=== PATIENT | female | born 1995 | race Caucasian/White ===

== ENCOUNTER 2021-10-05 07:50 | Outpatient (CLI) | payer BC, SELFPAY ==
--- NOTE | 2021-10-05 08:15 | CRLHL7_ITS ---
For Patients: As a result of the Cures Act, medical imaging exams and procedure reports are released immediately into your electronic medical record. You may view this report before your referring provider. If you have questions, please contact your health care provider. INDICATION: First trimester scan, establish dates. COMPARISON: None. TECHNIQUE: Real-time huerta-scale imaging of the pelvis was performed. FINDINGS: Sonographic imaging demonstrates a single living intrauterine gestation. The embryo demonstrates a regular cardiac rate measuring 148 beats per minute. The embryo`s crown-rump length measurement of 1.3 cm corresponds to a gestational age of 7 weeks 3 days with a sonographic due date of 05/21/2022. There is a normal-appearing yolk sac. There are no gross abnormalities noted within the embryo at this early state of development. The gestational sac has a normal appearance. There is no evidence of a perigestational hemorrhage. The amount of fluid within the sac appears appropriate for gestational age. The cervix is closed. The myometrium appears normal. The ovaries are of normal size. Corpus luteal cyst is present on the right measuring 2.5 x 1.6 x 1.7 cm. There are no suspicious fluid collections noted in the cul-de-sac. Trace physiologic free fluid. IMPRESSION: Single living intrauterine with sonographic gestational age 7 weeks 3 days and sonographic due date 05/21/2022. Dictated by Duncan Mora MD @ 10/05/2021 9:21:44 AM (Electronically Signed)
--- OUTSIDE RECORDS SUMMARY | 2021-10-12 20:55 | XMS_ITS | Encounter Summary ---
:1995 Author Organization [facility] Address [address] [place] [address] Care Team Providers Name Role Phone Moni Key MD Unavailable Moni Key MD Primary Care Provider Reason for Visit Reason Comments Medication Refill Encounter Details Date Type Department Care Team Description 05/06/2020 Refill [facility] Cassia Key MD Medication Refill [place] [address] [facility] [address] [place] [address] [place] [address] [phone] Social History Tobacco Use Types Packs/Day Years Used Date Never Smoker Smokeless Tobacco: Never Used Alcohol Use Standard Drinks/Week Comments Yes 0 (1 standard drink = 0.6 oz pure alcoho l) social Alcohol Habits Answer Date Recorded How often do you have a drink containing alcohol? Not asked How many drinks containing alcohol do you have on a typical Not asked day when you are drinking? How often do you have six or more drinks on one occasion? No t asked Comment: social 11/03/2015 Sex Assigned at Date Recorded Not on file documented as of this encounter Miscellaneous Notes Telephone Encounter - Becki Garner RN - 05/07/2020 10:57 AM CST Letter mailed to patient. S FEEDER Telephone Encounter - Moni Zamora RN - 05/07/2020 9:44 AM CST Medication is being filled for 1 time refill only due to: Patient needs to be seen because it has been more than one year since last visit. Please call patient or mail a letter S FEEDER Telephone Encounter - Moni Zamora RN - 05/07/2020 9:41 AM CST Requested Prescriptions Pending Prescriptions Disp Refills ??? ESTARYLLA 0.25-35 MG-MCG tablet [Pharmacy Med Name: ESTARYLLA TABLETS 28S] 84 tablet 3 Sig: TAKE 1 TABLET BY MOUTH DAILY Contraceptives Protocol Failed - 05/06/2020 3:18 AM Failed - Recent (12 mo) or future (30 days) visit within the authorizing provider's specialty Patient has had an office visit with the authorizing provider or a provider within the authorizing providers department within the previous 12 mos or has a future within next 30 days. See Patient Info tab in inbasket, or Choose Columns in Meds & Orders section of the refill encounter. Passed - Patient is not a current smoker if age is 35 or older Passed - Medication is active on med list Passed - No active on record Passed - No positive test in past 12 months S FEEDER documented in this encounter Plan of Treatment Not on filedocumented as of this encounter Visit Diagnoses Diagnosis Encounter for surveillance of contracept papi pills Surveillance of previously prescribed co ntraceptive pill documented in this encounter Care Teams Cigarette Stamper Relationship Specialty Start Date End Date Moni Key MD PCP - General Internal Medicine 11/20/17 [address] [place] [address] Moni Key MD Assigned PCP 12/10/17 [address] [place] [address] documented as of this encounter
--- OUTSIDE RECORDS SUMMARY | 2021-10-12 20:55 | XMS_ITS | Encounter Summary ---
:1995 Author Organization [facility] Address [address] [place] [address] Care Team Providers Name Role Phone Moni Key MD Unavailable Moni Key MD Primary Care Provider Reason for Visit Reason Comments Physical Fasting. Refill for co ntrol pill Encounter Details Date Type Department Care Team Description 03/19/2019 Office Visit [facility] Moni Key MD Encounter for routine adult health exami [facility] without abnormal findings (Primary Dx); [facility] [address] Encounter for surveillance o f contraceptive pills; [address] Screening for malignant neoplasm of cerv ix [place], [place] [phone] Social History Tobacco Use Types Packs/Day Years [...] on file documented as of this encounter Last Filed Vital Signs Vital Sign Reading Time Taken Comments Blood Pressure 138/80 03/19/2019 8:15 AM ROLL MACHINE OPERATOR Pulse 99 03/19/2019 8:15 AM ROLL MACHINE OPERATOR Temperature 36.8 ??C (98.3 ??F) 03/19/2019 8:15 AM ROLL MACHINE OPERATOR Respiratory Rate 14 03/19/2019 8:15 AM ROLL MACHINE OPERATOR Oxygen Saturation 98% 03/19/2019 8:15 AM ROLL MACHINE OPERATOR Inhaled Oxygen Concentration - - Weight 68 kg (149 lb 14.4 oz) 03/19/2019 8:15 AM ROLL MACHINE OPERATOR Height 180.3 cm (5' 11) 03/19/2019 8:15 AM ROLL MACHINE OPERATOR Body Mass Index 20.91 03/19/2019 8:15 AM ROLL MACHINE OPERATOR documented in this encounter Patient Instructions Patient InstructionsMoni Key MD - 03/19/2019 8:00 AM CST PREVENTIVE HEALTH RECOMMENDATIONS: Vaccines: Get a flu shot each year. Get a tetanus shot every 10 years. Exercise for at least 150 minutes a week (an average of 30 minutes a day, 5 days of the week). This will help you control your weight and prevent disease. Limit alcohol to one drink per day. No smoking. Wear sunscreen to prevent skin cancer. See your dentist twice a year for an exam and cleaning. Try to get Calcium 1000 mg total per day. It is best to not take it all at once. Try to get Vitamin D at least 1000 units (25 mcg) per day. BMI or Body Mass Index is a way of indicating weight and health risk for cardiovascular diseases, high blood pressure, diabetes. Definitions: Underweight is less than 18.5 and will be associated with health risk. Normal BMI is 18.5 to 25 Overweight is 25-29 Obesity is 30 or greater Morbid Obesity is 40 or greater or 35 or greater with diabetes, prediabetes or abnormal blood sugar, high blood pressure or elevated cholesterol Obesity and Morbid Obesity are associated with higher health risks. Lowering calories, exercising more may lower your BMI and even small decreases can have positive impact on lowering health risks. Your Body mass index is 20.91 kg/m??.., MACHINE OPERATOR documented in this encounter Progress Notes Moni Key MD - 03/19/2019 8:00 AM CST SUBJECTIVE: CC: Jenny Allen is an 23 year old woman who presents for preventive health visit. Healthy Habits: Getting at least 3 servings of Calcium per day: Yes Bi-annual eye exam: NO Dental care twice a year: NO Sleep apnea or symptoms of sleep apnea: None Diet: Regular (no restrictions) Frequency of exercise: 4-5 days/week Duration of exercise: Greater than 60 minutes Taking medications regularly: Yes Medication side effects: None PHQ-2 Total Score: 0 Additional concerns today: No She reports she is doing well with her current control pill. Ability to successfully perform activities of daily living: Yes, no assistance needed Home safety: none identified Hearing impairment: None Today's PHQ-2 Score: PHQ-2 (??1999 Pfizer) 03/19/2019 Q1: Little interest or pleasure in doing things 0 Q2: Feeling down, depressed or hopeless 0 PHQ-2 Score 0 Q1: Little interest or pleasure in doing things Not at all Q2: Feeling down, depressed or hopeless Not at all PHQ-2 Score 0 Abuse: Current or Past(Physical, Sexual or Emotional)- No Do you feel safe in your environment? Yes Social History Tobacco Use ??? Smoking status: Never Smoker ??? Smokeless tobacco: Never Used Substance Use Topics ??? Alcohol use: Yes Alcohol/week: 0.0 standard drinks Comment: social If you drink alcohol do you typically have >3 drinks per day or >7 drinks per week? No Alcohol Use 03/19/2019 Prescreen: >3 drinks/day or >7 drinks/week? No Prescreen: >3 drinks/day or >7 drinks/week? - Reviewed orders with patient. Reviewed health maintenance and updated orders accordingly - Yes Mammogram not appropriate for this patient based on age. Pertinent mammograms are reviewed under the imaging tab. History of abnormal Pap smear: NO - age 21-29 PAP every 3 years recommended PAP / HPV 11/03/2015 PAP NIL Reviewed and updated as needed this visit by clinical staff Reviewed and updated as needed this visit by Provider Patient Active Problem List Diagnosis ??? CARDIOVASCULAR SCREENING; LDL GOAL LESS THAN 160 ??? Idiopathic thrombocytopenic purpura (H) Current Outpatient Medications Medication Sig Dispense Refill ??? norgestimate-ethinyl estradiol (ESTARYLLA) 0.25-35 MG-MCG tablet Take 1 tablet by mouth daily 84tablet 3 Review of Systems Constitutional: Negative for chills and fever. HENT: Negative for congestion, ear pain, hearing loss and sore throat. Eyes: Negative for pain and visual disturbance. Respiratory: Negative for cough and shortness of breath. Cardiovascular: Negative for chest pain, palpitations and peripheral edema. Gastrointestinal: Positive for constipation. Negative for abdominal pain, diarrhea, heartburn, hematochezia and nausea. Breasts: Negative for tenderness, breast mass and discharge. Genitourinary: Negative for dysuria, frequency, genital sores, hematuria, pelvic pain, urgency, vaginal bleeding and vaginal discharge. Musculoskeletal: Negative for arthralgias, joint swelling and myalgias. Skin: Negative for rash. Neurological: Negative for dizziness, weakness, headaches and paresthesias. Psychiatric/Behavioral: Negative for mood changes. The patient is not nervous/anxious. No bleeding issues OBJECTIVE: Physical Exam Patient alert, in no acute distress BP 138/80 (BP Location: Left arm, Patient Position: Sitting, Cuff Size: Adult Regular) Pulse 99 Temp 98.3 ??F (36.8 ??C) (Oral) Resp 14 Ht 1.803 m (5' 11) Wt 68 kg (149 lb 14.4 oz) LMP 03/12/2019 SpO2 98% BMI 20.91 kg/m?? HEENT: extraocular movements are intact, pupils equal and reactive to light and accommodation, TMs clear, oropharynx clear NECK: Neck supple. No adenopathy. Thyroid symmetric, normal size, PULMONARY: clear to auscultation CARDIAC: regular rate and rhythm and no murmurs, clicks, or gallops PULSES: 2/2 throughout BACK: no spinal or CVAT ABDOMINAL: Soft, nontender. Normal bowel sounds. No hepatosplenomegaly or abnormal masses BREAST: No breast masses or tenderness, No axillary masses or tenderness and No galactorrhea PELVIC: external genitalia normal, vaginal mucosa normal, cervix normal, specimen sent for pap and GC chlamydia, bimanual exam with normal uterus and adnexa, REFLEXES: 2+ throughout ASSESSMENT/PLAN: 1. Encounter for routine adult health examination without abnormal findings Up to date, had normal lipids in past, advised on otc for bowels, - NEISSERIA GONORRHOEA PCR - CHLAMYDIA TRACHOMATIS PCR 2. Encounter for surveillance of contraceptive pills stable - norgestimate-ethinyl estradiol (ESTARYLLA) 0.25-35 MG-MCG tablet; Take 1 tablet by mouth daily Dispense: 84 tablet; Refill: 3 COUNSELING: Reviewed preventive health counseling, as reflected in patient instructions Estimated body mass index is 22.01 kg/m?? as calculated from the following: Height as of 11/20/17: 1.803 m (5' 11). Weight as of 11/20/17: 71.6 kg (157 lb 12.8 oz). reports that she has never smoked. She has never used smokeless tobacco. Counseling Resources: ATP IV Guidelines Pooled Cohorts Equation Calculator Breast Cancer Risk Calculator FRAX Risk Assessment ICSI Preventive Guidelines Dietary Guidelines for Americans, 2010 USDA's MyPlate ASA Prophylaxis Lung CA Screening Moni Key MD [facility] MACHINE OPERATOR documented in this encounter Nursing Notes Sarkis Sandhu MA - 03/19/2019 8:00 AM CST BP 138/80 (BP Location: Left arm, Patient Position: Sitting, Cuff Size: Adult Regular) Pulse 99 Temp 98.3 ??F (36.8 ??C) (Oral) Resp 14 Ht 1.803 m (5' 11) Wt 68 kg (149 lb 14.4 oz) LMP 03/12/2019 SpO2 98% BMI 20.91 kg/m?? MACHINE OPERATOR documented in this encounter Miscellaneous Notes Result Encounter Note - Domi Lambert RN - 03/19/2019 8:00 AM ROLL MACHINE OPERATOR Awaiting HPV. Domi Lambert RN BSN, Pap Tracking MACHINE OPERATOR Addendum Note - Leda Suárez MA - 03/19/2019 8:00 AM ROLL MACHINE OPERATOR Addended by: LEDA SUÁREZ on: 03/19/2019 12:55 PM Modules accepted: Orders MACHINE OPERATOR documented in this encounter Plan of Treatment Not on filedocumented as of this encounter Procedures Procedure Name Priority Date/Time Associated Diagnosis Comme nts PAP IMAGED THIN Routine 03/19/2019 12:55 Screening for Results for this LAYER SCREEN PM ROLL MACHINE OPERATOR malignant neoplasm procedure are in of cervix the results section. HPV HIGH RISK TYPES Routine 03/19/2019 8:30 AM Screening for R esults for this DNA CERVICAL ROLL MACHINE OPERATOR malignant neoplasm procedure are in of cervix the results section. NEISSERIA Routine 03/19/2019 8:30 AM Encounter for Results for this GONORRHOEAE PCR ROLL MACHINE OPERATOR routine adult health proc edure are in examination without the resu lts abnormal findings section. CHLAMYDIA Routine 03/19/2019 8:30 AM Encounter for Results for this TRACHOMATIS PCR ROLL MACHINE OPERATOR routine adult health proc edure are in examination without the resu lts abnormal findings section. documented in this encounter Results Pap imaged thin layer screen with HPV - recommended age 30 - 65 years (select HPV order below) (03/19/2019 12:55 PM ROLL MACHINE OPERATOR) Component Value Ref Test Analysis Performed At [facility] Range Method Time Signature PAP NIL COPATH Copath Report COPATH Patient Name: JENNY ALLEN MR#: [id number] Specimen #: [id number] Collected: 03/19/2019 Received: 03/20/2019 Reported: 03/22/2019 09:48 Ordering Phy(s): MONI KEY For improved result formatting, select 'View Enhanced Report Format' under Linked Documents section. SPECIMEN/STAIN PROCESS: Pap imaged thin layer prep screening (Surepath, FocalPoint w ith guided screening) ? Pap-Cyto x 1, HPV ordered x 1 SOURCE: Cervical ---- Pap imaged thin layer prep screening (Surepath, FocalPoint with guided screening) SPECIMEN ADEQUACY: Satisfactory for evaluation. -Transformation zone component absent. CYTOLOGIC INTERPRETATION: Negative for intraepithelial lesion or malignancy Electronically signed out by: NABIL Cortez (ASCP) CLINICAL HISTORY: Papanicolaou Test Limitations: ??Cervical cytology is a sc reening test with limited sensitivity; regular screening is critical for cancer prevention; Pap tests are p rimarily effective for the diagnosis/prevention of squamous cell carcinoma, not adenocarcinomas or other cancer s. COLLECTION SITE: Client: ??[facility] Location: [facility] ([place]) The technical component of this testing was completed at the [facility], with the professional compo nent performed at the [facility], [address] [facility], [place] [address] ([phone]) Specimen (Source) Anatomical Collection Method Collection Time Re ceived Time Location / / Volume Laterality Cytologic 03/19/2019 12:55 03/20/2019 material PM ROLL MACHINE OPERATOR 10:09 AM ROLL MACHINE OPERATOR (specimen) Moni Key MD LAB - OPTIME CLINICAL SPECIM EN Performing Organization Address City/State/ZIP Code Phon e Number COPATH HPV High Risk Types DNA Cervical (03/19/2019 8:30 AM ROLL MACHINE OPERATOR) [facility] Method Time Signature HPV Source SurePath 03/19/2019 [place] 12:55 PM ROLL MACHINE OPERATOR [facility] HPV 16 DNA Negative NEG^Negat 03/26/2019 [facility] papi 2:59 PM ROLL MACHINE OPERATOR [facility] HPV 18 DNA Negative NEG^Negat 03/26/2019 [facility] ROLL MACHINE OPERATOR [facility] Other HR HPV Negative NEG^Negat 03/26/2019 [facility] papi 2:59 PM ROLL MACHINE OPERATOR [facility] Final This 03/26/2019 [facility] patient's 2:59 PM ROLL MACHINE OPERATOR [place] [facility] sample is [facility] negative for CAMPUS HPV DNA. Comment: This test was developed and its performa nce characteristics determined by the [facility], Molecular Diagnostics Laboratory. It has not been cleared or approved by the FDA. The laboratory is regulated under CLIA as qualified to perform high-compl exity testing. This test is used for clinical purposes. It should not be rega rded as investigational or for research. (Note) METHODOLOGY: ??The [employer] 4800 syst em uses automated extraction, simultaneous amplification of HPV (L1 re gion) and beta-globin, ?? followed by ??real time detection of flu orescent labeled HPV and beta globin using specific oligonucleotide pr obes . The test specifically identifies types HPV 16 DNA and HPV 18 D NA while concurrently detecting the rest of the high risk type s (31, 33, 35, 39, 45, 51, 52, 56, 58, 59, 66 or 68). COMMENTS: ??This test is not intended fo r use as a screening device for women under age 30 with normal cervi jimbo cytology. ??Results should be correlated with cytologic and histolo gic findings. Close clinical followup is recommended. Specimen Description Cervical Cells 03/19/2019 12: 55 PM [facility] Comment: [id number] Specimen Anatomical Collection Method Collection Time Receive d Time (Source) Location / / Volume Laterality Cervical Cells 03/19/2019 8:30 AM 020 2:02 ROLL MACHINE OPERATOR PM ROLL MACHINE OPERATOR Moni Key MD LAB - BLOOD ORDERABLES Performing Organization Address [facility] Phon e Number [address] [address] [facility] [address] [place], [place] [address] [address] CHLAMYDIA TRACHOMATIS PCR (03/19/2019 8:30 AM ROLL MACHINE OPERATOR) [facility] gist Method Time Signature Specimen Endocervical 03/19/2019 [place] Description 9:23 AM ROLL MACHINE OPERATOR [facility] Chlamydia Negative NEG^Negat 03/20/2019 INFECTIOUS Trachomatis PCR papi 1:23 PM ROLL MACHINE OPERATOR [facility] Comment: Negative for C. trachomatis rRNA by dueñas scription mediated amplification. A negative result by drawbridge operator media carly amplification does not preclude the presence of C. trachomatis infection because results are dependent on proper and adequate collection, absence of inhibitors, and sufficient rRNA to be detected. Specimen (Source) Anatomical Collection Method Collection Time Re ceived Time Location / / Volume Laterality Endocervical 03/19/2019 8:30 03/19/2019 9 :22 cytologic material AM ROLL MACHINE OPERATOR AM ROLL MACHINE OPERATOR (specimen) Moni Key MD LAB - MICRO GENERAL ORDERABL ES Performing Organization Address [facility] Phon e Number INFECTIOUS DISEASES [address] [place] [address] DIAGNOSTIC LABORATORY, [facility] [address] [place] [address] [place] [address] INFECTIOUS DISEASES [address] [place] [address], A [facility]IC LAB[facility]ORY NEISSERIA GONORRHOEA PCR (03/19/2019 8:30 AM ROLL MACHINE OPERATOR) Patholo gist Method Time Signature Specimen Endocervical 03/19/2019 [facility] Descrip 9:23 AM ROLL MACHINE OPERATOR [facility] N Gonorrhea Negative NEG^Negat 03/20/2019 INFECTIOUS PCR papi 1:23 PM ROLL MACHINE OPERATOR [facility] Comment: Negative for N. gonorrhoeae rRNA by dueñas scription mediated amplification. A negative result by drawbridge operator media carly amplification does not preclude the presence of N. gonorrhoeae infection because results are dependent on proper and adequate collection, absence of inhibitors, and sufficient rRNA to be detected. Specimen (Source) Anatomical Collection Method Collection Time Re ceived Time Location / / Volume Laterality Endocervical 03/19/2019 8:30 03/19/2019 9 :22 cytologic material AM ROLL MACHINE OPERATOR AM ROLL MACHINE OPERATOR (specimen) Moni Key MD LAB - MICRO GENERAL ORDERABL ES Performing Organization Address City/State/ZIP Code Phon e Number INFECTIOUS DISEASES [address] [place] [address] DIAGNOSTIC LABORATORY, [facility] [address] [place] [address] [place] [address] INFECTIOUS DISEASES [address] [place] [address], A DI[facility]STIC LAB[facility]ATORY documented in this encounter Visit Diagnoses Diagnosis Encounter for routine adult health exami nation without abnormal findings - Primary Encounter for surveillance of contracept papi pills Surveillance of previously prescribed co ntraceptive pill Screening for malignant neoplasm of cerv ix Screening for malignant neoplasm of the cervix documented in this encounter Care Teams School Principal Relationship Specialty Start Date End Date Moni Key MD PCP - General Internal Medicine 11/20/17 [address] [place] [address] Moni Key MD Assigned PCP 12/10/17 [address] [place] [address] documented as of this encounter
--- OUTSIDE RECORDS SUMMARY | 2021-10-12 20:55 | XMS_ITS | Encounter Summary ---
:1995 Author Organization [facility] Address [address] [place] [address] Care Team Providers Name Role Phone Moni Key MD Unavailable Moni Key MD Primary Care Provider Reason for Visit Reason Comments Medication Refill Encounter Details Date Type Department Care Team Description 07/27/2020 Refill [facility] Cassia Key MD Medication Refill [place] [address] [facility] [address] [place] [address] [facility] [place] [address] [phone] Social History Tobacco Use Types Packs/Day Years [...] this encounter Miscellaneous Notes Telephone Encounter - Miguelina Barbosa RN - 07/28/2020 10:11 AM CDT Routing refill request to provider for review/approval because: Luana given x1 and patient did not follow up, please advise Patient needs to be seen because it has been more than 1 year since last office visit. Pt has been contacted via phone and letter with no response Miguelina Barbosa RN, BSN documented in this encounter Plan of Treatment Not on filedocumented as of this encounter Visit Diagnoses Diagnosis Encounter for surveillance of contracept papi pills Surveillance of previously prescribed co ntraceptive pill documented in this encounter Care Teams [place] Relationship Specialty Start Date End Date Moni Key MD PCP - General Internal Medicine 11/20/17 [address] [place] [phone] Moni Key MD Assigned PCP 12/10/17 [address] [place] [phone] documented as of this encounter
--- OUTSIDE RECORDS SUMMARY | 2021-10-12 20:55 | XMS_ITS | Encounter Summary ---
:1995 Author Organization [place] Address [address] [place] [address] Care Team Providers Name Role Phone Moni Key MD Unavailable Moni Key MD Primary Care Provider Reason for Referral Consultation (Routine) - Closed Specialty Diagnoses / Procedures Referred By Contact Refer red To Contact Medical Oncology Diagnoses Idiopathic thrombocytopenic purpura (H) Moni Key MD [facility] [address] [address] [address] [place] [address] [facility] [place] [address] Phone: Fax: Referral ID Status Reason Start Date Expiration Date Visits Requ ested Visits Authorized [id number] Closed 09/07/2020 09/07/2021 1 1 Reason for Visit Reason Comments Physical Fasting. Encounter Details Date Type Department Care Team Description 09/07/2020 Office Visit [facility] Moni Key MD Encounter for routine adult health exami nation without abnormal findings (Primary Dx); [facility] [place] [address] Idiopathic thrombocytopenic purpura (H) [address] [place] [phone] Social History Tobacco Use Types Packs/Day Years [...] Assigned at Date Recorded Not on file COVID-19 Exposure Response Date Recorded In the last month, have you been in contact with No / Unsure 09/07/2020 8:32 AM CDT someone who was confirmed or suspected to have Coronavirus / COVID-19? documented as of this encounter Last Filed Vital Signs Vital Sign Reading Time Taken Comments Blood Pressure 127/82 09/07/2020 8:41 AM CDT Pulse 97 09/07/2020 8:41 AM CDT Temperature 36.7 ??C (98.1 ??F) 09/07/2020 8:41 AM CDT Respiratory Rate 20 09/07/2020 8:41 AM CDT Oxygen Saturation 99% 09/07/2020 8:41 AM CDT Inhaled Oxygen Concentration - - Weight 74.4 kg (164 lb) 09/07/2020 8:41 AM CDT Height 180.3 cm (5' 11) 09/07/2020 8:41 AM CDT Body Mass Index 22.87 09/07/2020 8:41 AM CDT documented in this encounter Patient Instructions Patient InstructionsMoni Key MD - 09/07/2020 8:20 AM CDT Start a vitamin. documented in this encounter Progress Notes Moni Key MD - 09/07/2020 8:20 AM CDT SUBJECTIVE: CC: Robyn Avila is an 24 year old woman who presents for preventive health visit. Patient has been advised of split billing requirements and indicates understanding: Yes Healthy Habits: Getting at least 3 servings of Calcium per day: Yes Bi-annual eye exam: NO Dental care twice a year: NO Sleep apnea or symptoms of sleep apnea: None Diet: Regular (no restrictions) Frequency of exercise: 4-5 days/week Duration of exercise: Greater than 60 minutes Taking medications regularly: Yes Medication side effects: None PHQ-2 Total Score: 0 Additional concerns today: No Current concerns: She is considering . She wonders how to stop the control pill. She also is concerned because of a history of ITP and whether that will affect . Ability to successfully perform activities of daily [...] all PHQ-2 Score 0 Abuse: Current or Past (Physical, Sexual or Emotional) - No Do you feel safe in your environment? Yes Have you ever done Advance Care Planning? (For example, a Health Directive, POLST, or a discussion with a medical provider or your loved ones about your wishes): No, advance care planning information given to patient to review. Patient plans to discuss their wishes with loved ones or provider. Social History Tobacco Use ??? Smoking status: Never Smoker ??? Smokeless tobacco: Never Used Substance Use Topics ??? Alcohol use: Yes Alcohol/week: 0.0 standard drinks Comment: social If you drink alcohol do you typically have >3 drinks per day or >7 drinks per week? No Alcohol Use 03/19/2019 Prescreen: >3 drinks/day or >7 drinks/week? No Prescreen: >3 drinks/day or >7 drinks/week? - No flowsheet data found. Reviewed orders with patient. Reviewed health maintenance and updated orders accordingly - Yes Breast Cancer Screening: Any new diagnosis of family breast, ovarian, or bowel cancer? No FHS-7: No flowsheet data found. click delete button to remove this line now Patient under 40 years of age: Routine Mammogram Screening not recommended. Pertinent mammograms are reviewed under the imaging tab. History of abnormal Pap smear: NO - age 21-29 PAP every 3 years recommended PAP / HPV Latest Ref Rng & Units 03/19/2019 11/03/2015 PAP - NIL NIL HPV 16 DNA NEG:Negative Negative - HPV 18 DNA NEG:Negative Negative - OTHER HR HPV NEG:Negative Negative - Reviewed and updated as needed this visit by clinical staff Reviewed and updated as needed this visit by Provider Patient Active Problem List Diagnosis ??? CARDIOVASCULAR SCREENING; LDL GOAL LESS THAN 160 ??? Idiopathic thrombocytopenic purpura (H) / Current Outpatient Medications Medication Sig Dispense Refill ??? multivitamin w/minerals (MULTI-VITAMIN) tablet Take 1 tablet by mouth daily Review of Systems Constitutional: Negative for chills and fever. HENT: Negative for congestion, ear pain, hearing loss and sore throat. Eyes: Negative for pain and visual disturbance. Respiratory: Negative for cough and shortness of breath. Cardiovascular: Negative for chest pain, palpitations and peripheral edema. Gastrointestinal: Negative for abdominal pain, constipation, diarrhea, heartburn, hematochezia and nausea. Breasts: Negative for tenderness, breast mass and discharge. Genitourinary: Negative for dysuria, frequency, genital sores, hematuria, pelvic pain, urgency, vaginal bleeding and vaginal discharge. Musculoskeletal: Negative for arthralgias, joint swelling and myalgias. Skin: Negative for rash. Neurological: Negative for dizziness, weakness, headaches and paresthesias. Psychiatric/Behavioral: Negative for mood changes. The patient is not nervous/anxious. OBJECTIVE: BP 127/82 (BP Location: Left arm, Patient Position: Sitting, Cuff Size: Adult Regular) Pulse 97 Temp 98.1 ??F (36.7 ??C) (Oral) Resp 20 Ht 1.803 m (5' 11) Wt 74.4 kg (164 lb) LMP 08/25/2020 SpO2 99% BMI 22.87 kg/m?? Physical Exam HEENT: extraocular movements are intact, pupils equal and reactive to light and accommodation, TMs clear NECK: Neck supple. No adenopathy. Thyroid symmetric, normal size,, PULMONARY: clear to auscultation CARDIAC: regular rate and rhythm and no murmurs, clicks, or gallops PULSES: 2/2 throughout BACK: no spinal or CVAT ABDOMINAL: Soft, nontender. Normal bowel sounds. No hepatosplenomegaly or abnormal masses BREAST: No breast masses or tenderness, No axillary masses or tenderness and No galactorrhea REFLEXES: 2+ throughout ASSESSMENT/PLAN: 1. Encounter for routine adult health examination without abnormal findings Advised about stopping oral contraceptives, using backup method the first month, starting vitamin if she is planning . - Basic metabolic panel (Ca, Cl, CO2, Creat, Gluc, K, Na, BUN) - Hepatitis C Screen Reflex to HCV RNA Quant and Genotype - Lipid panel reflex to direct LDL Fasting 2. Idiopathic thrombocytopenic purpura (H) Recommend that we do a baseline CBC to know how her counts are doing currently and would recommend aconsult with hematology so that she and an OB would know how to monitor her during . - Oncology/Hematology Adult Referral; Future - CBC with platelets and differential Patient has been advised of split billing requirements and indicates understanding: Yes COUNSELING: Reviewed preventive health counseling, as reflected in patient instructions Estimated body mass index is 20.91 kg/m?? as calculated from the following: Height as of 03/19/19: 1.803 m (5' 11). Weight as of 03/19/19: 68 kg (149 lb 14.4 oz). She reports that she has never smoked. She has never used smokeless tobacco. Counseling Resources: ATP IV Guidelines Pooled Cohorts Equation Calculator Breast Cancer Risk Calculator BRCA-Related Cancer Risk Assessment: FHS-7 Tool FRAX Risk Assessment ICSI Preventive Guidelines Dietary Guidelines for Americans, 2010 [facility] My[employer]ate ASA Prophylaxis Lung CA Screening Moni Key MD [facility] documented in this encounter Nursing Notes Sarkis Sandhu MA - 09/07/2020 8:20 AM CDT BP 127/82 (BP Location: Left arm, Patient Position: Sitting, Cuff Size: Adult Regular) Pulse 97 Temp 98.1 ??F (36.7 ??C) (Oral) Resp 20 Ht 1.803 m (5' 11) Wt 74.4 kg (164 lb) LMP 08/25/2020 SpO2 99% BMI 22.87 kg/m?? documented in this encounter Plan of Treatment Scheduled Referrals Name Type Priority Associated Diagnoses Order S chedule Oncology/Hematology Referral Routine Idiopathic thrombocyt openic Expected: Adult Referral purpura (H) 09/07/2020, Expires: 2021 documented as of this encounter Procedures Procedure Name Priority Date/Time Associated Diagnosis Comme nts HEPATITIS C SCREEN Routine 09/07/2020 9:16 Encounter for barbara alana Results for this REFLEX TO HCV RNA AM CDT adult health procedure are in QUANT AND GENOTYPE examination without th e results abnormal findings section. CBC WITH PLATELETS & Routine 09/07/2020 9:16 Idiopathic Resu lts for this DIFFERENTIAL AM CDT thrombocytopenic procedure a re in purpura (H) the results section. LIPID REFLEX TO Routine 09/07/2020 9:16 Encounter for routine Results for this DIRECT LDL PANEL AM CDT adult health procedure a re in examination without the resu lts abnormal findings section. BASIC METABOLIC Routine 09/07/2020 9:16 Encounter for routine Results for this PANEL AM CDT adult health procedure are i n examination without the resu lts abnormal findings section. documented in this encounter Results Lipid panel reflex to direct LDL Fasting (09/07/2020 9:16 AM CDT) P athologist Signature Cholesterol 146 <200 mg/dL 09/08/2020 [facility] 7:18 AM [facility] Triglycerides 80 <150 mg/dL 09/08/2020 [facility] 7:18 AM [facility] Comment: Fasting specimen HDL Cholesterol 52 >49 mg/dL 09/08/2020 7:23 AM CDT [facility] LDL Cholesterol 78 <100 mg/dL 09/08/2020 7:23 AM CDT [facility] Comment: Desirable: <100 mg/dl Non HDL Cholesterol 94 <130 mg/dL 09/08/2020 7:23 AM CDT [facility] Specimen Anatomical Collection Method Collection Time Receive d Time (Source) Location / / Volume Laterality Blood 09/07/2020 9:16 AM 9:21 CDT AM CDT Moni Key MD LAB - BLOOD ORDERABLES Performing Organization Address City/State/ZIP Code Phon e Number [facility] [address] [place], [place] [address] [facility] [address] [place] [address], U [phone] Hepatitis C Screen Reflex to HCV RNA Quant and Genotype (09/07/2020 9:16 AM CDT) Patholo gist Method Time Signature Hepatitis C Nonreactive NR^Nonrea 09/08/2020 [facility] ctive 11:53 AM CDT [facility] Comment: Assay performance characteristics have n ot been established for newborns, infants, and children Specimen Anatomical Collection Method Collection Time Receive d Time (Source) Location / / Volume Laterality Blood 09/07/2020 9:16 AM 9:21 CDT AM CDT Moni Key MD LAB - BLOOD ORDERABLES Performing Organization Address City/State/ZIP Code Phon e Number [facility] [address] [place] [address] [facility] (ABNORMAL) Basic metabolic panel (Ca, Cl, CO2, Creat, Gluc, K, Na, BUN) (09/07/2020 9:16 AM CDT) P athologist Signature Sodium 137 133 - 144 09/08/2020 [facility] mmol/L 7:11 AM CDT [facility] Potassium 3.8 3.4 - 5.3 09/08/2020 [facility] mmol/L 7:[address] [facility] Chloride 106 94 - 109 09/08/2020 [facility] mmol/L 7:[address] [facility] Carbon Dioxide 29 20 - 32 09/08/2020 [facility] mmol/L 7:18 AM T [facility] Anion Gap 2 (L) 3 - 14 09/08/2020 [facility] mmol/L 7:18 AM T [facility] Glucose 75 70 - 99 09/08/2020 [facility] mg/dL 7:18 AM T [facility] Comment: Fasting specimen Urea Nitrogen 12 7 - 30 mg/dL 09/08/2020 7:18 AM CDT [facility] Creatinine 0.91 0.52 - 1.04 mg/dL 09/08/2020 7:18 AM CD T [facility] GFR Estimate 87 >60 09/08/2020 7:18 AM CDT [facility] mL/min/{1.73_m2} [facility]OSPITAL Comment: Non GFR Calc Starting 02/20/2018, serum creatinine ba sed estimated GFR (eGFR) will be calculated using the Chronic Kidney Dise [facility] Epidemiology Collaboration (CKD-EPI) equation. GFR Estimate If >90 >60 mL/min/{1.73_m2} 09/08/2020 7: 18 AM [facility] Black [facility] Comment: GFR Calc Starting 02/20/2018, serum creatinine ba sed estimated GFR (eGFR) will be calculated using the Chronic Kidney Dise [facility] Epidemiology Collaboration (CKD-EPI) equation. Calcium 8.7 8.5 - 10.1 mg/dL 09/08/2020 7:18 AM [facility] Specimen Anatomical Collection Method Collection Time Receive d Time (Source) Location / / Volume Laterality Blood 09/07/2020 9:16 AM 9:21 CDT AM CDT Moni Key MD LAB - BLOOD ORDERABLES Performing Organization Address City/State/ZIP Code Phon e Number [facility] [address] [address] [facility] [address] [place], [place] [address] [facility] [address] [place] [address], U [phone] CBC with platelets and differential (09/07/2020 9:16 AM CDT) [facility] Method Time Signature WBC 8.8 4.0 - 09/07/2020 [place] 11.0 11:21 AM [facility] 10e9/L [facility] RBC Count 4.13 3.8 - 5.2 09/07/2020 [facility] 10e12/L 11:[address] [facility] Hemoglobin 13.0 11.7 - 09/07/2020 [facility] 15.7 g/dL 11:[address] [facility] Hematocrit 39.8 35.0 - 09/07/2020 [facility] 47.0 % 11:[address] [facility] MCV 96 78 - 100 09/07/2020 [facility] fl 11:[address] [facility] MCH 31.5 26.5 - 09/07/2020 [facility] 33.0 pg 11:[address] [facility] MCHC 32.7 31.5 - 09/07/2020 [place] 36.5 g/dL 11:[address] [facility] RDW 13.3 10.0 - 09/07/2020 [place] 15.0 % 11:[address] [facility] Platelet Count 273 150 - 450 09/07/2020 [place] 10e9/L 11:[address] [facility] % Neutrophils 57.0 % 09/07/2020 [place] 11:[address] [facility] % Lymphocytes 31.7 % 09/07/2020 [place] 11:[address] [facility] % Monocytes 8.0 % 09/07/2020 [place] 11:[address] [facility] % Eosinophils 3.0 % 09/07/2020 [place] 11:[address] [facility] % Basophils 0.3 % 09/07/2020 [place] 11:[address] [facility] Absolute 5.0 1.6 - 8.3 09/07/2020 [place] Neutrophil 10e9/L 11:[address] [facility] Absolute 2.8 0.8 - 5.3 09/07/2020 [place] Lymphocytes 10e9/L 11:[address] [facility] Absolute 0.7 0.0 - 1.3 09/07/2020 [place] Monocytes 10e9/L 11:[address] [facility] Absolute 0.3 0.0 - 0.7 09/07/2020 [place] Eosinophils 10e9/L 11:[address] [facility] Absolute 0.0 0.0 - 0.2 09/07/2020 [place] Basophils 10e9/L 11:[address] [facility] Diff Method Automated 09/07/2020 [place] Method 11:[address] [facility] Specimen Anatomical Collection Method Collection Time Receive d Time (Source) Location / / Volume Laterality Blood 09/07/2020 9:16 AM 9:21 CDT AM CDT Moni Key MD LAB - BLOOD ORDERABLES Performing Organization Address City/State/ZIP Code Phon e Number [facility] [address] [place], [place] [address] [address] documented in this encounter Visit Diagnoses Diagnosis Encounter for routine adult health exami nation without abnormal findings - Primary Idiopathic thrombocytopenic purpura (H) Immune thrombocytopenic purpura documented in this encounter Care Teams Office Machines Sales Representative Relationship Specialty Start Date End Date Moni Key MD PCP - General Internal Medicine 11/20/17 [address] [place], [place] [phone] Moni Key MD Assigned PCP 12/10/17 [address] [place], [place] [phone] documented as of this encounter
--- OUTSIDE RECORDS SUMMARY | 2021-10-12 20:55 | XMS_ITS | Encounter Summary ---
:1995 Author Organization [facility] Address [address] [place] [address] Care Team Providers Name Role Phone Moni Key MD Unavailable Moni Key MD Primary Care Provider Reason for Visit Reason Onset Date Comments Clinic Care Coordination - Initial 09/08/2020 Hemat ology Referral Encounter Details Date Type Department Care Team Description 09/08/2020 Telephone [facility] Courtney Khan Clin ic Care Coordination [facility] (Hematology and Clotting Disorde rs Referral) [address] [facility] [address] [place] [phone] Social History Tobacco Use Types Packs/Day Years [...] / COVID-19? documented as of this encounter Miscellaneous Notes Telephone Encounter - Courtney Khan RN - 09/08/2020 10:25 AM CDT RN called Robyn regarding hematology referral placed by Dr. Key. Per chart review Robyn is being referred for history of ITP and planning. Recent CBC done on 09/07/20 shows plt count of 273. RN called Robyn to offer next available appointment- she did not answer. A detailed voicemail and call back number were provided. Courtney Khan, MSN, RN, PHN - Nurse Clinician - [facility] - [phone] documented in this encounter Plan of Treatment Not on filedocumented as of this encounter Visit Diagnoses Not on filedocumented in this encounter Care Teams Dinkey Driver Relationship Specialty Start Date End Date Moni Key MD PCP - General Internal Medicine 11/20/17 [address] [place] [phone] Moni Key MD Assigned PCP 12/10/17 [address] [place] [address] documented as of this encounter
--- OUTSIDE RECORDS SUMMARY | 2021-10-12 20:55 | XMS_ITS | Encounter Summary ---
:1995 Author Organization [facility] Address [address] [place] [address] Care Team Providers Name Role Phone Moni Key MD Unavailable Moni Key MD Primary Care Provider Reason for Visit Reason Comments Medication Refill ESTARYLLA 0.25-35 [facility] Encounter Details Date Type Department Care Team Description 02/18/2019 Refill [facility] Moni Key MD Medication Refill [facility] [place] [address] (ESTARYLLA 0.25-35 [address] [place] [address] [facility] ) [place] [address] [place], [place] [phone] (Wo rk) [phone] Social History Tobacco Use Types Packs/Day Years [...] this encounter Miscellaneous Notes Telephone Encounter - Shanice Fraga RN - 02/20/2019 1:28 PM CST Medication is being filled for 1 time refill only due to: pt has a future appt scheduled. GLE CARRIER Telephone Encounter - Dania Heck - 02/18/2019 2:32 PM CST Requested Prescriptions Pending Prescriptions Disp Refills ??? ESTARYLLA 0.25-35 [facility] tablet [Pharmacy Med Name: ESTARYLLA Last Written Prescription Date: 11/20/2017 Last Fill Quantity: 84, # refills: 4 Last office visit: 11/20/2017 with prescribing provider: Future Office Visit: Next 5 appointments (look out 90 days) Mar 19, 2019 8:00 AM SHINGLE CARRIER PHYSICAL with Moni Key MD [facility] [address] [facility] [address] TABLETS 28S] 84 tablet 0 Sig: TAKE 1 TABLET BY MOUTH DAILY Contraceptives Protocol Passed - 02/18/2019 2:22 PM Passed - Patient is not a current smoker if age is 35 or older Passed - Recent (12 mo) or future (30 [...] section of the refill encounter. Passed - Medication is active on med list Passed - No active on record Passed - No positive test in past 12 months GLE CARRIER documented in this encounter Plan of Treatment Not on filedocumented as of this encounter Visit Diagnoses Diagnosis Encounter for surveillance of contracept papi pills Surveillance of previously prescribed co ntraceptive pill documented in this encounter Care Teams Metal Worker Relationship Specialty Start Date End Date Moni Key MD PCP - General Internal Medicine 11/20/17 [address] [place] [phone] Moni Key MD Assigned PCP 12/10/17 [address] [place], [place] [phone] documented as of this encounter
--- OUTSIDE RECORDS SUMMARY | 2021-10-12 20:55 | XMS_ITS | Encounter Summary ---
:1995 Author Organization [place] Address [address] [place] [address] Care Team Providers Name Role Phone Moni Key MD Unavailable Moni Key MD Primary Care Provider Encounter Details Date Type Department Care Team Description 09/07/2020 Travel Social History Tobacco Use Types Packs/Day Years [...] / COVID-19? documented as of this encounter Plan of Treatment Not on filedocumented as of this encounter Visit Diagnoses Not on filedocumented in this encounter Care Teams Publishing Agent Relationship Specialty Start Date End Date Moni Key MD PCP - General Internal Medicine 11/20/17 [address] [place] [address] Moni Key MD Assigned PCP 12/10/17 [address] [place] [address] documented as of this encounter
--- OUTSIDE RECORDS SUMMARY | 2021-10-12 20:55 | XMS_ITS | Encounter Summary ---
:1995 Author Organization [facility] Address [address] [place] [address] Care Team Providers Name Role Phone Moni Key MD Unavailable Moni Key MD Primary Care Provider Encounter Details Date Type Department Care Team Description 03/19/2019 Travel Social History Tobacco Use Types Packs/Day [...] on file documented as of this encounter Plan of Treatment Not on filedocumented as of this encounter Visit Diagnoses Not on filedocumented in this encounter Care Teams Adult Parole Officer Relationship Specialty Start Date End Date Moni Key MD PCP - General Internal Medicine 11/20/17 [address] [place], [place] [address] Moni Key MD Assigned PCP 12/10/17 [address] [place], [place] [phone] documented as of this encounter
--- OUTSIDE RECORDS SUMMARY | 2021-10-12 20:56 | XMS_ITS | Encounter Summary ---
:1995 Author Organization [facility] Address [address] [place] [address] Care Team Providers Name Role Phone Moni Key MD Primary Care Provider Reason for Visit Reason Comments Physical fasting- Imm/Inj Encounter Details Date Type Department Care Team Description 11/20/2017 Office Visit [facility] Moni Key MD Encounter for routine adult health exami nation without abnormal findings (Primary Dx); [facility] [address] Idiopathic thrombocytopenic purpura (H); [address] Encounter for surveillance of contracept papi pills; [place], [place] Need for prophylactic vaccin ation and inoculation against influenza; [place] [address] CARDIOVASCULAR SCREENING; LDL GOAL LESS THAN 160 [id number] Social History Tobacco Use Types Packs/Day [...] Sign Reading Time Taken Comments Blood Pressure 112/76 11/20/2017 9:00 AM CDT Pulse 70 11/20/2017 9:00 AM CDT Temperature 37.2 ??C (98.9 ??F) 11/20/2017 9:00 AM CDT Respiratory Rate 24 11/20/2017 9:00 AM CDT Oxygen Saturation 99% 11/20/2017 9:00 AM CDT Inhaled Oxygen Concentration - - Weight 71.6 kg (157 lb 12.8 11/20/2017 9:00 AM oz) CDT Height 180.3 cm (5' 11) 11/20/2017 9:00 AM pt reported CDT Body Mass Index 22.01 11/20/2017 9:00 AM CDT documented in this encounter Patient Instructions Patient InstructionsLisa Vinson CMA - 11/20/2017 8:53 AM CDT Preventive Health Recommendations Female Ages 21 to 25 Yearly exam: ??? See your health care provider every year in order to o Review health changes. o Discuss preventive care. o Review your medicines if your doctor has prescribed any. ??? You should be tested each year for STDs (sexually transmitted diseases). ??? Talk to your provider about how often you should have cholesterol testing. ??? Get a Pap test every three years. If you have an abnormal result, your doctor may have you test more often. ??? If you are at risk for diabetes, you should have a diabetes test (fasting glucose). Shots: ??? Get a flu shot each year. ??? Get a tetanus shot every 10 years. ??? Consider getting the shot (vaccine) that prevents cervical cancer (Gardasil). Nutrition: ??? Eat at least 5 servings of fruits and vegetables each day. ??? Eat whole-grain bread, whole-wheat pasta and brown rice instead of white grains and rice. ??? Get adequate Calcium and Vitamin D. Lifestyle ??? Exercise at least 150 minutes a week each week (30 minutes a day, 5 days a week). This will helpyou control your weight and prevent disease. ??? Limit alcohol to one drink per day. ??? No smoking. ??? Wear sunscreen to prevent skin cancer. ??? See your dentist every six months for an exam and cleaning. documented in this encounter Progress Notes Moni Key MD - 11/20/2017 8:40 AM CDT SUBJECTIVE: CC: Robyn Avila is an 22 year old woman who presents for preventive health visit. Physical Annual: Getting at least 3 servings of Calcium per day: Yes Bi-annual eye exam: NO Dental care twice a year: NO Sleep apnea or symptoms of sleep apnea: None Diet: Regular (no restrictions) Frequency of exercise: 6-7 days/week Duration of exercise: Greater than 60 minutes Taking medications regularly: Yes Medication side effects: None Additional concerns today: No She is new to this clinic but has been seen at a previous [facility]. She will need a refill of her oral contraceptive, does have some questions about it but she is tolerating it well. 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 She isnot certain of immunizations but does have a record at home that she will send to us. She is , working as a physical therapist aide. She is not planning a family soon. Today's PHQ-2 Score: PHQ-2 (??1999 Pfizer) 11/20/2017 Q1: Little interest or pleasure in doing things 0 Q2: Feeling down, depressed or hopeless 0 PHQ-2 Score 0 Q1: Little interest or pleasure in doing things Not at all Q2: Feeling down, depressed or hopeless Not at all PHQ-2 Score 0 Abuse: Current or Past(Physical, Sexual or Emotional)- No Do you feel safe in your environment - Yes Social History Substance Use Topics ??? Smoking status: Never Smoker ??? Smokeless tobacco: Never Used ??? Alcohol use 0.0 oz/week 0 Standard drinks or equivalent per week Comment: social Alcohol Use 11/20/2017 If you drink alcohol do you typically have greater than 3 drinks per day OR greater than 7 drinks per week? No No flowsheet data found. Reviewed orders with [...] updated as needed this visit by Provider Review of Systems Physical Exam Patient Active Problem List Diagnosis ??? CARDIOVASCULAR SCREENING; LDL GOAL LESS THAN 160 ??? Idiopathic thrombocytopenic purpura (H) Current Outpatient Prescriptions Medication Sig Dispense Refill ??? norgestimate-ethinyl estradiol (ORTHO-CYCLEN, SPRINTEC) 0.25-35 MG-MCG per tablet Take 1 tablet by mouth daily 84 tablet 4 ??? [DISCONTINUED] norgestimate-ethinyl estradiol (ORTHO-CYCLEN, SPRINTEC) 0.25- 35 MG-MCG per tabletTake 1 tablet by mouth daily 84 tablet 4 Review Of Systems Skin: negative Eyes: negative Ears/Nose/Throat: negative Respiratory: No dyspnea on exertion and No cough Cardiovascular: negative Gastrointestinal: negative Genitourinary: negative Musculoskeletal: negative Neurologic: negative Psychiatric: negative Hematologic/Lymphatic/Immunologic: negative Endocrine: negative Gynecologic ros reveals:no breast pain or new or enlarging lumps on self exam, cyclic withdrawl menses only, some questions about ovarian cancer symptoms, she is not having any Objective: Patient alert, in no acute distress BP 112/76 Pulse 70 Temp 98.9 ??F (37.2 ??C) (Oral) Resp 24 Ht 5' 11 (1.803 m) Wt 157 lb 12.8 oz (71.6 kg) LMP 10/17/2017 SpO2 99% BMI 22.01 kg/m2 HEENT: extraocular movements are intact, pupils equal [...] and No galactorrhea PELVIC: external genitalia normal, bimanual exam with normal uterus and adnexa, REFLEXES: 2+ throughout SKIN: unremarkable ASSESSMENT/PLAN: 1. Encounter for routine adult health examination without abnormal findings - NEISSERIA GONORRHOEA PCR - CHLAMYDIA TRACHOMATIS PCR 2. Encounter for surveillance of contraceptive pills Stable, continue med - norgestimate-ethinyl estradiol (ORTHO-CYCLEN, SPRINTEC) 0.25-35 MG-MCG per tablet; Take 1 tablet by mouth daily Dispense: 84 tablet; Refill: 4 3. Need for prophylactic vaccination and inoculation against influenza - FLU VACCINE, SPLIT VIRUS, IM (QUADRIVALENT) [45334]- >3 YRS - Vaccine Administration, Initial [21719] 4. Idiopathic thrombocytopenic purpura (H) No recurrence, call for any bleeding, purpura. She is going to be sending her immunization records, will check to make sure she has had Pneumovax. COUNSELING: Reviewed preventive health counseling, as reflected in patient instructions BP Readings from Last 1 Encounters: 09/24/16 118/68 Estimated body mass index is 20.77 kg/(m^2) as calculated from the following: Height as of 09/24/16: 5' 11.5 (1.816 m). Weight as of 09/24/16: 151 lb (68.5 kg). reports that she has never smoked. She has never used smokeless tobacco. Counseling Resources: ATP IV Guidelines Pooled Cohorts Equation Calculator Breast Cancer Risk Calculator FRAX Risk Assessment ICSI Preventive Guidelines Dietary Guidelines for Americans, 2009 [employer]'s MyPlate ASA Prophylaxis Lung CA Screening Moni Key MD [facility] Answers for HPI/ROS submitted by the patient on 11/20/2017 PHQ-2 Score: 0 Injectable Influenza Immunization Documentation 1. Is the person to be vaccinated sick today? No 2. Does the person to be vaccinated have an allergy to a component of the vaccine? No Egg Allergy Algorithm Link 3. Has the person to be vaccinated ever had a serious reaction to influenza vaccine in the past? No 4. Has the person to be vaccinated ever had Guillain-Silvestre?? syndrome? No Form completed by Rui Vinson CMA documented in this encounter Nursing Notes Lisa Vinson CMA - 11/20/2017 8:40 AM CDT BP 112/76 Pulse 70 Temp 98.9 ??F (37.2 ??C) (Oral) Resp 24 Ht 5' 11 (1.803 m) Wt 157 lb 12.8 oz (71.6 kg) LMP 10/17/2017 SpO2 99% BMI 22.01 kg/m2 Rui Vinson CMA documented in this encounter Plan of Treatment Not on filedocumented as of this encounter Procedures Procedure Name Priority Date/Time Associated Diagnosis Comme nts NEISSERIA Routine 11/20/2017 9:41 AM Encounter for Results for this GONORRHOEAE PCR CDT routine adult health proc edure are in examination without the resu lts abnormal findings section. CHLAMYDIA Routine 11/20/2017 9:41 AM Encounter for Results for this TRACHOMATIS PCR CDT routine adult health proc edure are in examination without the resu lts abnormal findings section. documented in this encounter Results CHLAMYDIA TRACHOMATIS PCR (11/20/2017 9:41 AM CDT) Patholo gist Method Time Signature Specimen Urine 11/20/2017 [facility] Description 11:16 AM CDT [facility] Chlamydia Negative NEG^Negat 11/21/2017 [facility] Trachomatis PCR papi 12:27 PM CDT [facility] Comment: Negative for C. trachomatis rRNA by dueñas scription mediated amplification. A negative result by rolloff truck driver media carly amplification does not preclude the presence of C. trachomatis infection because results are dependent on proper and adequate collection, absence of inhibitors, and sufficient rRNA to be detected. Specimen Anatomical Collection Method Collection Time Receive d Time (Source) Location / / Volume Laterality Urine specimen 11/20/2017 9:41 AM 018 (specimen) CDT 11:16 AM CDT Moni Key MD LAB - MICRO GENERAL ORDERABL ES Performing Organization Address City/State/ZIP Code Phon e Number [address] [address] [facility] [address] [place] [address] [address] NEISSERIA GONORRHOEA PCR (11/20/2017 9:41 AM CDT) Analysis Performed At Patho logist Time Signature Specimen Urine 11/20/2017 [facility] Descrip 11:16 AM CDT [facility] N Gonorrhea Negative NEG^Negati 11/21/2017 [facility] PCR ve 12:27 PM CDT [facility] Comment: Negative for N. gonorrhoeae rRNA by dueñas scription mediated amplification. A negative result by rolloff truck driver media carly amplification does not preclude the presence of N. gonorrhoeae infection because results are dependent on proper and adequate collection, absence of inhibitors, and sufficient rRNA to be detected. Specimen Anatomical Collection Method Collection Time Receive d Time (Source) Location / / Volume Laterality Urine specimen 11/20/2017 9:41 AM 018 (specimen) CDT 11:16 AM CDT Moni Key MD LAB - MICRO GENERAL ORDERABL ES Performing Organization Address City/State/ZIP Code Phon e Number [address] [address] [facility] [address] [place], [place] [address] [address] documented in this encounter Visit Diagnoses Diagnosis Encounter for routine adult health exami nation without abnormal findings - Primary Idiopathic thrombocytopenic purpura (H) Immune thrombocytopenic purpura Encounter for surveillance of contracept papi pills Surveillance of previously prescribed co ntraceptive pill Need for prophylactic vaccination and in oculation against influenza CARDIOVASCULAR SCREENING; LDL GOAL LESS THAN 160 documented in this encounter Care Teams Policyholder Information Clerk Relationship Specialty Start Date End Date Moni Key MD PCP - General Internal Medicine 11/20/17 [address] [place] [address] documented as of this encounter
--- OUTSIDE RECORDS SUMMARY | 2021-10-12 20:56 | XMS_ITS | Encounter Summary ---
:1995 Author Organization [facility] Address [facility] [place] [address] Care Team Providers Name Role Phone Unavailable Primary Care Provider Unavailable Reason for Visit Reason Onset Date Comments Panel Management 07/26/2017 Encounter Details Date Type Department Care Team Description 07/26/2017 Telephone [facility] Stella Muro Panel Management [facility] jennifer Farr PA-C [address] [place] [id number] [place] [address] [address] [place] [address] [place], [place] [phone] (Wo rk) [id number] [phone] Social History Tobacco Use Types Packs/Day Years [...] this encounter Miscellaneous Notes Telephone Encounter - Uyen Mendez L - 07/26/2017 7:35 AM CDT Panel Management Review Patient has the following on her problem list: None Composite cancer screening Chart review shows that this patient is due/due soon for the following None Summary: Patient is due/failing the following: Chlamydia screening and PHYSICAL Action needed: Patient needs office visit for physical/chlamydia screening. Type of outreach: Sent letter. Questions for provider review: None Uyen Mendez CMA documented in this encounter Plan of Treatment Not on filedocumented as of this encounter Visit Diagnoses Not on filedocumented in this encounter
--- OUTSIDE RECORDS SUMMARY | 2021-10-12 20:57 | XMS_ITS | Encounter Summary ---
:1995 Author Organization [facility] Address [address] [place] [address] Care Team Providers Name Role Phone Unavailable Primary Care Provider Unavailable Reason for Visit Reason Comments Physical RHM Encounter Details Date Type Department Care Team Description 11/03/2015 Office Visit [facility] Harry Moore er for surveillance of contraceptives (Primary Dx); Clinic Christine Bearden MD Screening for malignant neoplasm of cerv ix; [place] XXX RETIRED XXX Screen for STD (sexually transmitted dis ease); [address] Routine general medical examination [place] [phone] Social History Tobacco Use Types Packs/Day Years Used Date Never Smoker Alcohol Use Standard Drinks/Week Comments Yes 0 [...] Sign Reading Time Taken Comments Blood Pressure 120/80 11/03/2015 8:21 AM CDT Pulse 50 11/03/2015 8:21 AM CDT Temperature - - Respiratory Rate - - Oxygen Saturation 99% 11/03/2015 8:21 AM CDT Inhaled Oxygen Concentration - - Weight 68.3 kg (150 lb 8 oz) 11/03/2015 8:21 AM CDT Height 181.6 cm (5' 11.5) 11/03/2015 8:21 AM CDT Body Mass Index 20.7 11/03/2015 8:21 AM CDT documented in this encounter Patient Instructions Patient InstructionsMaggie Pineda LPN - 11/03/2015 9:13 AM CDT You can reach your [facility] Care Team any time of the day by calling [phone]. This number will put you in touch with the 24 hour nurse line if the clinic is closed. To contact your STERILE PROCESSING TECHNICIAN Rolled [employer] Lacer please call [phone]. This is a direct number for your care team between 8 a.m. and 4 p.m. Monday through Monday. [facility] is open for your convenience: [phone] Monday through Monday 8 a.m. to 8:30 p.m. Monday 9 a.m. to 6 p.m. Monday Noon to 6 p.m. They are closed on all major holidays. documented in this encounter Progress Notes [facility] MD - 11/03/2015 8:44 AM CDT SUBJECTIVE: CC: Robyn Allen is a 20 year old female who presents for routine health maintenance exam. LMP: Patient's last menstrual period was 10/27/2015 (exact date). 0. Here for refill of BC pills. This is her first pelvic exam and Pap smear No server service assistant complaints No Known Allergies Past Medical History Diagnosis Date ??? ITP (idiopathic thrombocytopenic purpura) (H) Past Surgical History Procedure Laterality Date ??? As lap,splenectomy Dec 2001 ? ? Tonsillectomy & adenoidectomy 2002 Social History Social History ??? Marital Status: Single Spouse Name: N/A ??? Number of Children: N/A ??? Years of Education: N/A Occupational History ??? Not on file. Social History Main Topics ??? Smoking status: Never Smoker ??? Smokeless tobacco: Not on file ??? Alcohol Use: 0.0 oz/week 0 Standard drinks or equivalent per week Comment: social ??? Drug Use: No ??? Sexual Activity: Partners: Male Control/ Protection: OCP Other Topics Concern ??? Not on file Social History Narrative ??? No narrative on file Family History Problem Relation Age of Onset ??? Coronary Artery Disease Paternal Grandmother ??? Family History Negative Father ??? Family History Negative Mother ROS: CONSTITUTIONAL:NEGATIVE for fever, chills, change in weight INTEGUMENTARY/SKIN: NEGATIVE for worrisome rashes, moles or lesions ENT/MOUTH: NEGATIVE for ear, mouth and throat problems RESP:NEGATIVE for significant cough or SOB CV: NEGATIVE for chest pain, palpitations or peripheral edema GI: NEGATIVE for nausea, abdominal pain, heartburn, or change in bowel habits :NEGATIVE for frequency, dysuria, or hematuria BREAST: NEGATIVE for masses, tenderness or discharge NEURO: NEGATIVE for weakness, dizziness or paresthesias PSYCHIATRIC: NEGATIVE for changes in mood or affect EXAM: BP 120/80 mmHg Pulse 50 Ht 5' 11.5 (1.816 m) Wt 150 lb 8 oz (68.266 kg) BMI 20.70 kg/m2 SpO2 99% LMP 10/27/2015 (Exact Date) GENERAL APPEARANCE: healthy, alert and no distress SKIN: no suspicious lesions or rashes RESP: lungs clear to auscultation - no rales, rhonchi or wheezes CV: regular rates and rhythm, normal S1 S2, no S3 or S4 and no murmur, click or rub LYMPHATICS: normal ant/post cervical and supraclavicular nodes ABDOMEN: soft, nontender, without hepatosplenomegaly or masses BREAST: normal without masses, tenderness or nipple discharge and no palpable axillary masses or adenopathy PELVIC: normal vagina and vulva, normal cervix without lesions or tenderness, uterus normal size anteverted, adnexa normal in size without tenderness, rv deferred Pap smear done, exam chaperoned by nurse PSYCH: mentation appears normal and affect normal/bright ASSESSMENT/IMPRESSION: Health Maintenance Exam Request for refill of BC pills PLAN: Pap Refill BC pills Rx See orders from today's visit documented in this encounter Nursing Notes Maggie Pineda LPN - 11/03/2015 9:12 AM CDT Chief Complaint Patient presents with ??? Physical RHM Initial BP 120/80 mmHg Pulse 50 Ht 5' 11.5 (1.816 m) Wt 150 lb 8 oz (68.266 kg) BMI 20.70 kg/m2 SpO2 99% LMP 10/27/2015 (Exact Date) Estimated body mass index is 20.7 kg/(m^2) as calculated from the following: Height as of this encounter: 5' 11.5 (1.816 m). Weight as of this encounter: 150 lb 8 oz (68.266 kg). BP completed using cuff size: regular The following HM Due: pap smear Chalmydia (24) Pap done 1st pap today Mammo done na Colonoscopy done na GC done on today Here for refill on her BCP First exam today Nurse assisted visit. Edith Pineda LPN documented in this encounter Plan of Treatment Not on filedocumented as of this encounter Procedures Procedure Name Priority Date/Time Associated Diagnosis Comme nts NEISSERIA Routine 11/03/2015 8:40 AM Screen for STD Results for this GONORRHOEAE PCR CDT (sexually procedure ar e in transmitted disease) the res ults section. CHLAMYDIA Routine 11/03/2015 8:40 AM Screen for STD Results for this TRACHOMATIS PCR CDT (sexually procedure ar e in transmitted disease) the res ults section. PAP IMAGED THIN Routine 11/03/2015 12:00 Screening for Results for this LAYER SCREEN AM CDT malignant neoplasm procedure are in of cervix the results section. documented in this encounter Results CHLAMYDIA TRACHOMATIS PCR (11/03/2015 8:40 AM CDT) Component Value Ref Test Analysis Performed At [facility] gist Range Method Time Signature Specimen Cervical [facility] Chlamydia Negative NEG INFECTIOUS Trachomatis Negative for C. trachomatis rRNA by button breaker mediated amplification. DISEASE PCR A negative result by transc ription mediated amplification does not preclude the DIAGNOSTIC presence of C. trachomatis infection because re sults are dependent on proper LABORATORY and adequate collection, absence of inhibitors, and suffici ent rRNA to be detected. Specimen Anatomical Collection Method Collection Time Receive d Time (Source) Location / / Volume Laterality Cervical swab 11/03/2015 8:40 AM 11/03/19 16 1:16 (specimen) CDT PM CDT [facility] MD LAB - MICRO GENERAL ORDERABL ES Performing Organization Address [facility] Phon e Number INFECTIOUS DISEASES [address] [place] [address] DIAGNOSTIC LABORATORY, [facility] [address] [place] [address] [facility] INFECTIOUS DISEASE [address] [place], [place] [phone] [place] [address] DIAGNOSTIC LABORATORY NEISSERIA GONORRHOEA PCR (11/03/2015 8:40 AM CDT) Component Value Ref Test Analysis Performed At Patholo gist Range Method Time Signature Specimen Cervical [facility] N Gonorrhea Negative NEG INFECTIOUS PCR Negative for N. gonorrhoeae rRNA by transcripti on mediated amplification. DISEASE A negative result by transc ription mediated amplification does not preclude the DIAGNOSTIC presence of N. gonorrhoeae infection because re sults are dependent on proper LABORATORY and adequate collection, absence of inhibitors, and suffici ent rRNA to be detected. Specimen Anatomical Collection Method Collection Time Receive d Time (Source) Location / / Volume Laterality Cervical swab 11/03/2015 8:40 AM 11/03/19 16 1:16 (specimen) CDT PM CDT [facility] MD LAB - MICRO GENERAL ORDERABL ES Performing Organization Address [facility] Phon e Number INFECTIOUS DISEASES [address] [place] [address] DIAGNOSTIC LABORATORY, [facility] [address] [place] [address] [facility] INFECTIOUS DISEASE [address] [place], [place] [id number] [place] [address] DIAGNOSTIC LABORATORY Pap imaged thin layer screen only - recommended age 21 - 24 years (11/03/2015 12:00 AM CDT) Component Value Ref Test Analysis Performed At Patholo gist Range Method Time Signature PAP NIL COPATH Copath Report COPATH Patient Name: ROBYN ALLEN MR#: [id number] Specimen #: [id number] Collected: 11/03/2015 Received: 11/04/2015 Reported: 11/05/2015 11:34 Ordering Phy(s): [facility] SPECIMEN/STAIN PROCESS: Pap imaged thin layer prep screening (Surepath, FocalPoint w ith guided screening) ? Pap-Cyto x 1 SOURCE: Cervical, endocervical ---- Pap imaged thin layer prep screening (Surepath, FocalPoint with guided screening) SPECIMEN ADEQUACY: Satisfactory for evaluation. -Transformation zone component present. CYTOLOGIC INTERPRETATION: Negative for Intraepithelial Lesion or Malignancy Electronically signed out by: NABIL Kelly ??(ASCP) Processed and screened at [facility] CLINICAL HISTORY: First pap test, Papanicolaou Test Limitations: ??Cervical cytology is a scre ening test with limited sensitivity; regular screening is critical for cancer prevention; Pap tests are primarily effective for the diagnosis/prevention of squamous cell carcinoma, not adenoca rcinomas or other cancers. TESTING LAB LOCATION: [address] ??[phone] COLLECTION SITE: Client: ??[facility] Location: [facility] (S) Specimen (Source) Anatomical Collection Method Collection Time Re ceived Time Location / / Volume Laterality Cytologic 11/03/2015 11/04/2015 8:43 material AM CDT (specimen) [facility] MD LAB - OPTIME CLINICAL SPECIM EN Performing Organization Address City/State/ZIP Code Phon e Number COPATH documented in this encounter Visit Diagnoses Diagnosis Encounter for surveillance of contracept aroldo - Primary Contraceptive surveillance, unspecified Screening for malignant neoplasm of cerv ix Screening for malignant neoplasm of the cervix Screen for STD (sexually transmitted dis ease) Screening examination for venereal disea se Routine general medical examination at a health care facility documented in this encounter
--- OUTSIDE RECORDS SUMMARY | 2021-10-12 20:57 | XMS_ITS | Encounter Summary ---
:1995 Author Organization [place] Address [address] [place] [address] Care Team Providers Name Role Phone Unavailable Primary Care Provider Unavailable Reason for Visit Reason Comments Recheck Medication Encounter Details Date Type Department Care Team Description 09/24/2016 Office Visit [facility] of [facility] (Primary Dx[facility] [place] [facility] [place] Need for HPV vaccine [address] [place] [id number] Social History Tobacco Use Types Packs/Day Years Used Date Never Smoker Smokeless Tobacco: Never Used Tobacco Cessation: Counseling Given: No Alcohol Use Standard Drinks/Week Comments Yes 0 [...] Sign Reading Time Taken Comments Blood Pressure 118/68 09/24/2016 8:17 AM CDT Pulse 84 09/24/2016 8:17 AM CDT Temperature 37.1 ??C (98.8 ??F) 09/24/2016 8:17 AM CDT Respiratory Rate 20 09/24/2016 8:17 AM CDT Oxygen Saturation 100% 09/24/2016 8:17 AM CDT Inhaled Oxygen Concentration - - Weight 68.5 kg (151 lb) 09/24/2016 8:17 AM CDT Height 181.6 cm (5' 11.5) 09/24/2016 8:17 AM CDT Body Mass Index 20.77 09/24/2016 8:17 AM CDT documented in this encounter Progress Notes Taina Delgadillo PA-C - 09/24/2016 8:20 AM CDT SUBJECTIVE: Robyn Avila is a 20 year old female who presents to clinic today for the following health issues: Medication Followup of BCP-has CPE 10/2015, normal Pap ?? Taking Medication as prescribed: yes ?? Side Effects: None ?? Medication Helping Symptoms: yes -Orthocyclen for one year, was on a different OCP for 2 years before that. -She had a pap last year which was normal. -She denies changes in weight, changes about mood, no GI symptoms including nausea, abdominal discomfort. -No personal or family hx of blood clots or clotting disorder except her father's side where 3 of the men have had blood clots in their 50-60yrs. 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 - no personal or family hx of ovarian, breast or endometrial cancer. - no hx of diabetes Problem list and histories reviewed & adjusted, as indicated. Additional history: as documented Patient Active Problem List Diagnosis ??? Routine general medical examination at a health care facility ??? Encounter for surveillance of contraceptives Past Surgical History: Procedure Laterality Date ??? 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 ? TONSILLECTOMY & ADENOIDECTOMY 2002 Social History Substance Use Topics ??? Smoking status: Never Smoker ??? Smokeless tobacco: Never Used ??? Alcohol use 0.0 oz/week 0 Standard drinks or equivalent per week Comment: social Family History Problem Relation Age of Onset ??? Coronary Artery Disease Paternal Grandmother ??? Family History Negative Father ??? Family History Negative Mother Current Outpatient Prescriptions Medication Sig Dispense Refill ??? norgestimate-ethinyl estradiol (ORTHO-CYCLEN, SPRINTEC) 0.25-35 MG-MCG per tablet Take 1 tablet by mouth daily 84 tablet 4 ??? [DISCONTINUED] norgestimate-ethinyl estradiol (ORTHO-CYCLEN, SPRINTEC) 0.25- 35 MG-MCG per tabletTake 1 tablet by mouth daily 84 tablet 3 BP Readings from Last 3 Encounters: 09/24/16 118/68 11/03/15 120/80 Wt Readings from Last 3 Encounters: 09/24/16 151 lb (68.5 kg) 11/03/15 150 lb 8 oz (68.3 kg) Reviewed and updated as needed this visit by clinical staffTobacco Allergies Meds Med Hx Surg Hx Fam Hx Soc Hx Reviewed and updated as needed this visit by Provider ROS: Constitutional, HEENT, cardiovascular, pulmonary, gi and gu systems are negative, except as otherwise noted. OBJECTIVE: BP 118/68 (BP Location: Left arm, Cuff Size: Adult Regular) Pulse 84 Temp 98.8 ??F (37.1 ??C) Resp 20 Ht 5' 11.5 (1.816 m) Wt 151 lb (68.5 kg) LMP 08/28/2016 SpO2 100% ? No BMI 20.77 kg/m2 Body mass index is 20.77 kg/(m^2). GENERAL: healthy, alert and no distress NECK: no adenopathy, no asymmetry, masses, or scars and thyroid normal to palpation RESP: lungs clear to auscultation - no rales, rhonchi or wheezes CV: regular rate and rhythm, normal S1 S2, no S3 or S4, no murmur, click or rub, no peripheral edemaand peripheral pulses strong BREAST: normal breast tissue bilaterally without skin change or internal lump or mass. ABDOMEN: soft, nontender, no hepatosplenomegaly, no masses and bowel sounds normal SKIN: no suspicious lesions or rashes PSYCH: mentation appears normal, affect normal/bright Diagnostic Test Results: none ASSESSMENT/PLAN: ICD-10-CM 1. Encounter for surveillance of contraceptive pills Z30.41 norgestimate-ethinyl estradiol (ORTHO-CYCLEN, SPRINTEC) 0.25-35 MG-MCG per tablet 2. Need for HPV vaccine Z23 Refill medication; return in one year. Discussed HPV vaccination and its benefits vs relatively low risk. Discussed FDA approved thru age 25 and encouraged her to get it. She will call back for nurse only appt for the vaccine if she decidesto do so. Taina Delgadillo PA-C [facility] documented in this encounter Nursing Notes Beckie Lema LPN - 09/24/2016 8:20 AM CDT Chief Complaint Patient presents with ??? Recheck Medication Initial BP 118/68 (BP Location: Left arm, Cuff Size: Adult Regular) Pulse 84 Temp 98.8 ??F (37.1??C) Resp 20 Ht 5' 11.5 (1.816 m) Wt 151 lb (68.5 kg) LMP 08/28/2016 SpO2 100% ? No BMI 20.77 kg/m2 Estimated body mass index is 20.77 kg/(m^2) as calculated from the following: Height as of this encounter: 5' 11.5 (1.816 m). Weight as of this encounter: 151 lb (68.5 kg). Medication Reconciliation: complete Beckie Lema LPN documented in this encounter Plan of Treatment Not on filedocumented as of this encounter Visit Diagnoses Diagnosis Encounter for surveillance of contracept papi pills - Primary Surveillance of previously prescribed co ntraceptive pill Need for HPV vaccine Need for prophylactic vaccination and in oculation against other viral diseases documented in this encounter
== END 2021-10-05 07:51 | disposition home or self-care (01) ==
LOC: US 07:52
PROVIDERS: Visit Provider Advanced Practice Midwife
DX: Z34.91 Encounter for supervision of normal pregnancy, unspecified, first trimester (principal); Z3A.01 Less than 8 weeks gestation of pregnancy
CPT/HCPCS: 76817

== ENCOUNTER 2021-10-05 09:57 | Outpatient (CLI) | payer BC, SELFPAY ==
[2021-10-05 10:20] LABS: Basophils Percent Auto 0.5 % (0.0-3.0); Hematocrit 38.5 % (33.0-51.0); Hemoglobin* 12.9 gm/dL (12.0-16.0); Immature Granulocytes Pct Auto 0.2 %; Lymphocytes Percent Auto 21.3 % (20-44); Mean Corpuscular HGB Conc 34 gm/dL (32-36); Mean Corpuscular Hemoglobin 32 pg (26-34); Mean Corpuscular Volume 95 fL (80-100); Monocytes Percent Auto 8.1 % (0.0-11.0); Neutrophils Percent Auto 68.9 % (42.0-72.0); Platelet Count* 342 K/uL (140-440); RDW Coefficient of Variation % 13.2 % (11.5-15.5); Red Blood Count 4.05 m/uL (4.00-5.20); White Blood Count* 11.35 K/uL (4.50-11.00)
[2021-10-05 10:22] LABS: Slide Review Reflex No
[2021-10-05 11:52] LABS: HIV 1/2/P24 Combo Screen* Negative (Negative)
[2021-10-05 13:19] LABS: Hepatitis B Surface Antigen* Negative (Negative)
[2021-10-05 13:36] LABS: Hepatitis C Virus Antibody* Negative (Negative)
[2021-10-08 00:58] LABS: Rapid Plasma Reagin (RPR) Non Reactive (Non Reactive)
[2021-10-08 05:06] LABS: Rubella Antibody IgG 13.4 IU/mL
--- OUTSIDE RECORDS SUMMARY | 2021-10-12 21:27 | XMS_ITS | Encounter Summary ---
:1995 Author Organization [facility] Address [address] [place] [address] Care Team Providers Name Role Phone Moni [...] on filedocumented in this encounter Care Teams Order Packer Or Packager Relationship Specialty Start Date End Date Moni Key MD PCP - General Internal Medicine 11/20/17 [address] [place] [address] Moni Key MD Assigned PCP 12/10/17 [address] [place] [address] documented as of this encounter
--- OUTSIDE RECORDS SUMMARY | 2021-10-12 21:27 | XMS_ITS | Encounter Summary ---
:1995 Author Organization [facility] Address [address] [place] [address] Care Team Providers Name Role Phone Moni Key MD Unavailable Moni Key MD Primary Care Provider Reason for Referral Consultation (Routine) - Closed Specialty Diagnoses / Procedures Referred By Contact Refer red To Contact Medical Oncology Diagnoses Idiopathic thrombocytopenic purpura (H) Moni Key MD [facility] [address] [address] [address] [place] [address] [facility] Medical [place] [address] Phone: Fax: Referral ID Status Reason Start Date Expiration Date Visits Requ ested Visits Authorized [id number] Closed 09/07/2020 09/07/2021 1 1 Reason for Visit Reason Comments Physical Fasting. Encounter Details Date Type Department Care Team Description 09/07/2020 Office Visit [facility] Moni Key MD Encounter for routine adult health exami nation without abnormal findings (Primary Dx); Clinic [place] [address] Idiopathic thrombocytopenic purpura (H) [address] [place] [phone] Social History Tobacco Use Types Packs/Day Years [...] Preventive Guidelines Dietary Guidelines for Americans, 2010 [employer] ASA Prophylaxis Lung CA Screening Moni Key MD [facility] documented in this encounter Nursing Notes Sarkis [...] athologist Signature Cholesterol 146 <200 mg/dL 09/08/2020 [facility] 7:18 AM [facility] Triglycerides 80 <150 mg/dL 09/08/2020 [facility] 7:18 AM [facility] Comment: Fasting specimen HDL Cholesterol 52 >49 mg/dL 09/08/2020 7:23 AM CDT [facility] LDL Cholesterol 78 <100 mg/dL 09/08/2020 7:[address] [facility] Comment: Desirable: <100 mg/dl Non HDL Cholesterol 94 <130 mg/dL 09/08/2020 7:23 AM CDT [facility] Specimen Anatomical Collection Method Collection Time Receive d Time (Source) Location / / Volume Laterality Blood 09/07/2020 9:16 AM 9:21 CDT AM CDT Moni Key MD LAB - BLOOD ORDERABLES Performing Organization Address City/State/ZIP Code Phon e Number [facility] [address] [place], [place] [address] [facility] [address] [place] [address], U [phone] Hepatitis C Screen Reflex to HCV RNA Quant and Genotype (09/07/2020 9:16 AM CDT) Patholo gist Method Time Signature Hepatitis C Nonreactive NR^Nonrea 09/08/2020 [facility] ctive 11:53 AM CDT [facility] Comment: Assay performance characteristics have n ot been established for newborns, infants, and children Specimen Anatomical Collection Method Collection Time Receive d Time (Source) Location / / Volume Laterality Blood 09/07/2020 9:16 AM 9:21 CDT AM CDT Moni Key MD LAB - BLOOD ORDERABLES Performing Organization Address City/State/ZIP Code Phon e Number [facility] [address] [place] [address] [facility] (ABNORMAL) Basic metabolic panel (Ca, Cl, CO2, Creat, Gluc, K, Na, BUN) (09/07/2020 9:16 AM CDT) P athologist Signature Sodium 137 133 - 144 09/08/2020 [facility] mmol/L 7:11 AM CDT [facility] Potassium 3.8 3.4 - 5.3 09/08/2020 [facility] mmol/L 7:11 AM [facility] Chloride 106 94 - 109 09/08/2020 [facility] mmol/L 7:11 AM [facility] Carbon Dioxide 29 20 - 32 09/08/2020 [facility] mmol/L 7:18 AM T [facility] Anion Gap 2 (L) 3 - 14 09/08/2020 [facility] mmol/L 7:18 AM T [facility] Glucose 75 70 - 99 09/08/2020 [facility] mg/dL 7:18 AM T [facility] Comment: Fasting specimen Urea Nitrogen 12 7 - 30 mg/dL 09/08/2020 7:18 AM CDT [facility] Creatinine 0.91 0.52 - 1.04 mg/dL 09/08/2020 7:18 AM CD T [facility] GFR Estimate 87 >60 09/08/2020 7:18 AM CDT [facility] mL/min/{1.73_m2} [facility]OSPITAL Comment: Non GFR Calc Starting 02/20/2018, serum creatinine ba sed estimated GFR (eGFR) will be calculated using the Chronic Kidney Dise [facility] Epidemiology Collaboration (CKD-EPI) equation. GFR Estimate If >90 >60 mL/min/{1.73_m2} 09/08/2020 7: 18 AM [facility] Black [facility] Comment: GFR Calc Starting 02/20/2018, serum creatinine ba sed estimated GFR (eGFR) will be calculated using the Chronic Kidney Dise [facility] Epidemiology Collaboration (CKD-EPI) equation. Calcium 8.7 8.5 - 10.1 mg/dL 09/08/2020 7:18 AM [facility] Specimen Anatomical Collection Method Collection Time Receive d Time (Source) Location / / Volume Laterality Blood 09/07/2020 9:16 AM 9:21 CDT AM CDT Moni Key MD LAB - BLOOD ORDERABLES Performing Organization Address City/State/ZIP Code Phon e Number M [facility] [address] [facility] [address] [place], [place] [address] [facility] [address] [place] [address], U [phone] CBC with platelets and differential (09/07/2020 9:16 AM CDT) [facility] Method Time Signature WBC 8.8 4.0 - 09/07/2020 [facility] 11.0 11:21 AM [facility] 10e9/L [facility] RBC Count 4.13 3.8 - 5.2 09/07/2020 [facility] 10e12/L 11:21 AM [facility] Hemoglobin 13.0 11.7 - 09/07/2020 [facility] 15.7 g/dL 11:21 AM [facility] Hematocrit 39.8 35.0 - 09/07/2020 [facility] 47.0 % 11:21 AM [facility] MCV 96 78 - 100 09/07/2020 [facility] fl 11:21 AM [facility] MCH 31.5 26.5 - 09/07/2020 [facility] 33.0 pg 11:21 AM [facility] MCHC 32.7 31.5 - 09/07/2020 [facility] 36.5 g/dL 11:21 AM [facility] RDW 13.3 10.0 - 09/07/2020 [facility] 15.0 % 11:21 AM [facility] Platelet Count 273 150 - 450 09/07/2020 [facility] 10e9/L 11:21 AM [facility] % Neutrophils 57.0 % 09/07/2020 [facility] 11:21 AM [facility] % Lymphocytes 31.7 % 09/07/2020 [facility] 11:21 AM [facility] % Monocytes 8.0 % 09/07/2020 [facility] 11:21 AM [facility] % Eosinophils 3.0 % 09/07/2020 [facility] 11:21 AM [facility] % Basophils 0.3 % 09/07/2020 [facility] 11:21 AM [facility] Absolute 5.0 1.6 - 8.3 09/07/2020 [facility] Neutrophil 10e9/L 11:21 AM [facility] Absolute 2.8 0.8 - 5.3 09/07/2020 [facility] Lymphocytes 10e9/L 11:21 AM [facility] Absolute 0.7 0.0 - 1.3 09/07/2020 [facility] Monocytes 10e9/L 11:21 AM [facility] Absolute 0.3 0.0 - 0.7 09/07/2020 [facility] Eosinophils 10e9/L 11:21 AM [facility] Absolute 0.0 0.0 - 0.2 09/07/2020 [facility] Basophils 10e9/L 11:21 AM [facility] Diff Method Automated 09/07/2020 [facility] Method 11:21 AM [facility] Specimen Anatomical Collection Method Collection Time Receive d Time (Source) Location / / Volume Laterality Blood 09/07/2020 9:16 AM 9:21 CDT AM CDT Moni Key MD LAB - BLOOD ORDERABLES Performing Organization Address City/State/ZIP Code Phon e Number [facility] [address] [place], [place] [address] [address] documented in this encounter Visit Diagnoses Diagnosis Encounter for routine adult health exami nation without abnormal findings - Primary Idiopathic thrombocytopenic purpura (H) Immune thrombocytopenic purpura documented in this encounter Care Teams Design Quality Engineer Relationship Specialty Start Date End Date Moni Key MD PCP - General Internal Medicine 11/20/17 [address] [place], [place] [phone] Moni Key MD Assigned PCP 12/10/17 [address] [place], [place] [phone] documented as of this encounter
--- OUTSIDE RECORDS SUMMARY | 2021-10-12 21:27 | XMS_ITS | Encounter Summary ---
:1995 Author Organization [facility] Address [address] [place] [address] Care Team Providers Name Role Phone Moni Key MD Unavailable Moni Key MD Primary Care Provider Reason for Visit Reason Onset Date Comments Clinic Care Coordination - Initial 09/08/2020 Hemat ology Referral Encounter Details Date Type Department Care Team Description 09/08/2020 Telephone [facility] Courtney Khan Clin ic Care Coordination [facility] (Hematology and Clotting Disorde rs Referral) [address] [facility] [address] [place] [phone] Social History Tobacco Use Types Packs/Day [...] [facility] - [phone] documented in this encounter Plan of Treatment Not on filedocumented as of this encounter Visit Diagnoses Not on filedocumented in this encounter Care Teams Administrative Sales Assistant Relationship Specialty Start Date End Date Moni Key MD PCP - General Internal Medicine 11/20/17 [address] [place] [phone] Moni Key MD Assigned PCP 12/10/17 [address] [place] [phone] documented as of this encounter
--- OUTSIDE RECORDS SUMMARY | 2021-10-12 21:27 | XMS_ITS | Encounter Summary ---
:1995 Author Organization [place] Address [address] [place] [address] Care Team Providers Name Role Phone Moni Key MD Unavailable Moni Key MD Primary Care Provider Reason for Visit Reason Comments Medication Refill Encounter Details Date Type Department Care Team Description 07/27/2020 Refill [facility] Cassia Key MD Medication Refill [place] [address] [facility] [address] [place] [address] [facility] [place] [address] [phone] Social History Tobacco Use Types Packs/Day Years [...] pill documented in this encounter Care Teams Cherry Sorter Relationship Specialty Start Date End Date Moni Key MD PCP - General Internal Medicine 11/20/17 [address] [place] [phone] Moni Key MD Assigned PCP 12/10/17 [address] [place] [phone] documented as of this encounter
--- OUTSIDE RECORDS SUMMARY | 2021-10-12 21:28 | XMS_ITS | Encounter Summary ---
:1994 Author Organization [place] Address [address] [place] [address] Care Team Providers Name Role Phone Moni Key MD Unavailable Moni Key MD Primary Care Provider Reason for Visit Reason Comments Physical Fasting. Refill for co ntrol pill Encounter Details Date Type Department Care Team Description 03/19/2019 Office Visit [facility] Moni Key MD Encounter for routine adult health exami [facility] without abnormal findings (Primary Dx); [facility] [address] Encounter for surveillance o f contraceptive pills; [address] Screening for malignant neoplasm of cerv ix [place], [place] [phone] Social History Tobacco Use Types Packs/Day [...] Comments Blood Pressure 138/80 03/19/2019 8:15 AM DREDGE LEVER OPERATOR Pulse 99 03/19/2019 8:15 AM DREDGE LEVER OPERATOR Temperature 36.8 ??C (98.3 ??F) 03/19/2019 8:15 AM DREDGE LEVER OPERATOR Respiratory Rate 14 03/19/2019 8:15 AM DREDGE LEVER OPERATOR Oxygen Saturation 98% 03/19/2019 8:15 AM DREDGE LEVER OPERATOR Inhaled Oxygen Concentration - - Weight 68 kg (149 lb 14.4 oz) 03/19/2019 8:15 AM DREDGE LEVER OPERATOR Height 180.3 cm (5' 11) 03/19/2019 8:15 AM DREDGE LEVER OPERATOR Body Mass Index 20.91 03/19/2019 8:15 AM DREDGE LEVER OPERATOR documented in this encounter Patient Instructions [...] Your Body mass index is 20.91 kg/m??.., GE LEVER OPERATOR documented in this encounter Progress Notes [...] Prophylaxis Lung CA Screening Moni Key MD [facility] GE LEVER OPERATOR documented in this encounter Nursing Notes Sarkis Sandhu MA - 03/19/2019 8:00 AM CST BP 138/80 (BP Location: Left arm, Patient Position: Sitting, Cuff Size: Adult Regular) Pulse 99 Temp 98.3 ??F (36.8 ??C) (Oral) Resp 14 Ht 1.803 m (5' 11) Wt 68 kg (149 lb 14.4 oz) LMP 03/12/2019 SpO2 98% BMI 20.91 kg/m?? GE LEVER OPERATOR documented in this encounter Miscellaneous Notes Result Encounter Note - Domi Lambert RN - 03/19/2019 8:00 AM DREDGE LEVER OPERATOR Awaiting HPV. Domi Lambert RN BSN, Pap Tracking GE LEVER OPERATOR Addendum Note - Leda Suárez MA - 03/19/2019 8:00 AM DREDGE LEVER OPERATOR Addended by: LEDA SUÁREZ on: 03/19/2019 12:55 PM Modules accepted: Orders GE LEVER OPERATOR documented in this encounter Plan of Treatment Not on filedocumented as of this encounter Procedures Procedure Name Priority Date/Time Associated Diagnosis Comme nts PAP IMAGED THIN Routine 03/19/2019 12:55 Screening for Results for this LAYER SCREEN PM DREDGE LEVER OPERATOR malignant neoplasm procedure are in of cervix the results section. HPV HIGH RISK TYPES Routine 03/19/2019 8:30 AM Screening for R esults for this DNA CERVICAL DREDGE LEVER OPERATOR malignant neoplasm procedure are in of cervix the results section. NEISSERIA Routine 03/19/2019 8:30 AM Encounter for Results for this GONORRHOEAE PCR DREDGE LEVER OPERATOR routine adult health proc edure are in examination without the resu lts abnormal findings section. CHLAMYDIA Routine 03/19/2019 8:30 AM Encounter for Results for this TRACHOMATIS PCR DREDGE LEVER OPERATOR routine adult health proc edure are in examination without the resu lts abnormal findings section. documented in this encounter Results Pap imaged thin layer screen with HPV - recommended age 30 - 65 years (select HPV order below) (03/19/2019 12:55 PM DREDGE LEVER OPERATOR) Component Value Ref Test Analysis Performed At [facility] Range Method Time Signature PAP NIL COPATH Copath Report COPATH Patient Name: JENNY ALLEN MR#: [id number] Specimen #: [id number] Collected: 03/19/2019 Received: 03/20/2019 Reported: 03/22/2019 09:48 [...] or other cancer s. COLLECTION SITE: Client: ??[facility] Location: [facility] ([place]) The technical component of this testing was completed at the [facility], with the professional compo nent performed at the [facility], [address], [place] [address] ([phone]) Specimen (Source) Anatomical Collection Method Collection Time Re ceived Time Location / / Volume Laterality Cytologic 03/19/2019 12:55 03/20/2019 material PM DREDGE LEVER OPERATOR 10:09 AM DREDGE LEVER OPERATOR (specimen) Moni Key MD LAB - OPTIME CLINICAL SPECIM EN Performing Organization Address City/State/ZIP Code Phon e Number COPATH HPV High Risk Types DNA Cervical (03/19/2019 8:30 AM DREDGE LEVER OPERATOR) [facility] Method Time Signature HPV Source [facility] 03/19/2019 [place] 12:55 PM DREDGE LEVER OPERATOR [facility] HPV 16 DNA Negative NEG^Negat 03/26/2019 [facility] papi 2:59 PM DREDGE LEVER OPERATOR [facility] HPV 18 DNA Negative NEG^Negat 03/26/2019 [facility] PM DREDGE LEVER OPERATOR [facility] Other HR HPV Negative NEG^Negat 03/26/2019 [facility] papi 2:59 PM DREDGE LEVER OPERATOR [facility] Final This 03/26/2019 [facility] patient's 2:59 PM DREDGE LEVER OPERATOR [facility] [facility] sample is [facility] negative for CAMPUS HPV DNA. Comment: This test was developed and its performa nce characteristics determined by the [facility], Molecular Diagnostics Laboratory. It has not been [...] Description Cervical Cells 03/19/2019 12: 55 PM [facility] Comment: [id number] Specimen Anatomical Collection Method Collection Time Receive d Time (Source) Location / / Volume Laterality Cervical Cells 03/19/2019 8:30 AM 020 2:02 DREDGE LEVER OPERATOR PM DREDGE LEVER OPERATOR Moni Key MD LAB - BLOOD ORDERABLES Performing Organization Address [facility] Phon e Number [address] [address] [facility] [address] [place], [place] [address] [address] CHLAMYDIA TRACHOMATIS PCR (03/19/2019 8:30 AM DREDGE LEVER OPERATOR) [facility] gist Method Time Signature Specimen Endocervical 03/19/2019 [place] Description 9:23 AM DREDGE LEVER OPERATOR [facility] Chlamydia Negative NEG^Negat 03/20/2019 INFECTIOUS Trachomatis PCR papi 1:23 PM DREDGE LEVER OPERATOR [facility] Comment: Negative for C. trachomatis rRNA by dueñas scription mediated amplification. A negative result by fountain helper media carly amplification does not preclude the presence of C. trachomatis infection because results are dependent on proper and adequate collection, absence of inhibitors, and sufficient rRNA to be detected. Specimen (Source) Anatomical Collection Method Collection Time Re ceived Time Location / / Volume Laterality Endocervical 03/19/2019 8:30 03/19/2019 9 :22 cytologic material AM DREDGE LEVER OPERATOR AM DREDGE LEVER OPERATOR (specimen) Moni Key MD LAB - MICRO GENERAL ORDERABL ES Performing Organization Address [facility] Phon e Number INFECTIOUS DISEASES [address] [place] [address] DIAGNOSTIC LABORATORY, [facility] [address] [place] [address] [phone] [address] INFECTIOUS DISEASES [address] [place] [address], A DIAGNOSTIC LABORATORY [place]ER[place] GONORRHOEA PCR (03/19/2019 8:30 AM DREDGE LEVER OPERATOR) Patholo gist Method Time Signature Specimen Endocervical 03/19/2019 [facility] Descrip 9:23 AM DREDGE LEVER OPERATOR [facility] N Gonorrhea Negative NEG^Negat 03/20/2019 INFECTIOUS PCR papi 1:23 PM DREDGE LEVER OPERATOR [facility] Comment: Negative for N. gonorrhoeae rRNA by dueñas scription mediated amplification. A negative result by fountain helper media carly amplification does not preclude the presence of N. gonorrhoeae infection because results are dependent on proper and adequate collection, absence of inhibitors, and sufficient rRNA to be detected. Specimen (Source) Anatomical Collection Method Collection Time Re ceived Time Location / / Volume Laterality Endocervical 03/19/2019 8:30 03/19/2019 9 :22 cytologic material AM DREDGE LEVER OPERATOR AM DREDGE LEVER OPERATOR (specimen) Moni Key MD LAB - MICRO GENERAL ORDERABL ES Performing Organization Address City/State/ZIP Code Phon e Number INFECTIOUS DISEASES [address] [place] [address] DIAGNOSTIC LABORATORY, [facility] [address] [place] [address] [phone] [address] INFECTIOUS DISEASES [address] [place] [address], A DI[facility]STIC LAB[facility]ATORY documented in this encounter Visit Diagnoses Diagnosis Encounter for routine adult health exami [place] without abnormal findings - Primary Encounter for surveillance of contracept papi pills Surveillance of previously prescribed co ntraceptive pill Screening for malignant neoplasm of cerv ix Screening for malignant neoplasm of the cervix documented in this encounter Care Teams Door Clamper Relationship Specialty Start Date End Date Moni Key MD PCP - General Internal Medicine 11/20/17 [address] [place] [address] Moni Key MD Assigned PCP 12/10/17 [address] [place] [address] documented as of this encounter
--- OUTSIDE RECORDS SUMMARY | 2021-10-12 21:28 | XMS_ITS | Encounter Summary ---
:1994 Author Organization [place] Address [address] [place] [address] Care Team Providers Name Role Phone Moni [...] on filedocumented in this encounter Care Teams Oak Tanner Relationship Specialty Start Date End Date Moni Key MD PCP - General Internal Medicine 11/20/17 [address] [place], [place] [address] Moni Key MD Assigned PCP 12/10/17 [address] [place], [place] [phone] documented as of this encounter
--- OUTSIDE RECORDS SUMMARY | 2021-10-12 21:29 | XMS_ITS | Encounter Summary ---
:1994 Author Organization [place] Address [facility] [place] [address] Care Team Providers Name Role Phone Unavailable Primary Care Provider Unavailable Reason for Visit Reason Onset Date Comments Panel Management 05/02/2017 Encounter Details Date Type Department Care Team Description 05/02/2017 Telephone [facility] Stella Muro Panel Management [facility] [place] jennifer Farr PA-C [address] [place] [phone] [place] [address] [address] [place] [address] [place], [place] [phone] (Wo rk) [address] [phone] Social History Tobacco Use Types Packs/Day Years [...] Miscellaneous Notes Telephone Encounter - Uyen Mendez Yared - 05/02/2017 8:06 AM CST Panel Management Review Patient has the following on her problem list: None Composite cancer screening Chart review shows that this patient is due/due soon for the following None Summary: Patient is due/failing the following: Chlamydia screening Action needed: Patient needs office visit for chlamydia screening. Type of outreach: Sent letter. Questions for provider review: None Uyen Mendez CMA N RESOURCES COMMUNICATIONS MANAGER documented in this encounter Plan of Treatment Not on filedocumented as of this encounter Visit Diagnoses Not on filedocumented in this encounter
--- OUTSIDE RECORDS SUMMARY | 2021-10-12 21:29 | XMS_ITS | Encounter Summary ---
:1994 Author Organization [place] Address [address] [place] [address] Care Team Providers Name Role Phone Moni Key MD Primary Care Provider Reason for Visit Reason Comments Physical fasting- Imm/Inj Encounter Details Date Type Department Care Team Description 11/20/2017 Office Visit [facility] Moni Key MD Encounter for routine adult health exami nation without abnormal findings (Primary Dx); [facility] [address] Idiopathic thrombocytopenic purpura (H); [address] Encounter for surveillance of contracept papi pills; [place], [place] Need for prophylactic vaccin ation and inoculation against influenza; [place] [address] CARDIOVASCULAR SCREENING; LDL GOAL LESS THAN 160 [...] but has been seen at a previous [place] clinic. She will need a refill of [...] us. She is , working as a prn physical therapist. She is not planning a family soon. [...] - FLU VACCINE, SPLIT VIRUS, IM (QUADRIVALENT) [25597]- >3 YRS - Vaccine Administration, Initial [43075] 4. Idiopathic thrombocytopenic purpura (H) No recurrence, [...] Preventive Guidelines Dietary Guidelines for Americans, 2009 [employer] MyPlate ASA Prophylaxis Lung CA Screening Moni Key MD [facility] Answers for HPI/ROS submitted by the patient [...] Urine 11/20/2017 [facility] Description 11:16 AM CDT [facility] Chlamydia Negative NEG^Negat 11/21/2017 [facility] Trachomatis PCR papi 12:27 PM CDT [facility] Comment: Negative for C. trachomatis rRNA by dueñas scription mediated amplification. A negative result by sales lead media carly amplification does not preclude the [...] Organization Address City/State/ZIP Code Phon e Number [address] [address] [facility] [address] [place], [place] [address] [address] [place] GONORRHOEA PCR (11/20/2017 9:41 AM CDT) Analysis Performed At Patho logist Time Signature Specimen Urine 11/20/2017 [facility] Descrip 11:16 AM CDT [facility] N Gonorrhea Negative NEG^Negati 11/21/2017 [facility] PCR ve 12:27 PM CDT [facility] Comment: Negative for N. gonorrhoeae rRNA by dueñas scription mediated amplification. A negative result by sales lead media carly amplification does not preclude the [...] Organization Address City/State/ZIP Code Phon e Number [address] [address] [facility] [address] [place], [place] [address] [address] documented in [...] 160 documented in this encounter Care Teams Specialty Development Consultant Relationship Specialty Start Date End Date Moni Key MD PCP - General Internal Medicine 11/20/17 [address] [place] [address] documented as of this encounter
--- OUTSIDE RECORDS SUMMARY | 2021-10-12 21:29 | XMS_ITS | Encounter Summary ---
:1994 Author Organization [place] Address [address] [place] [address] Care Team Providers Name Role Phone Moni Key MD Unavailable Moni Key MD Unavailable Moni Key MD Primary Care Provider Reason for Visit Reason Comments Medication Refill norgestimate-ethinyl estradi ol (ORTHO-CYCLEN, SPRINTEC) 0.25-35 MG-MCG per tablet Encounter Details Date Type Department Care Team Description 11/10/2017 Refill [facility] Taina Delgadillo Medication Refill [facility] CODY Ben[place] (norgestimate-ethinyl [address] [facility] estradiol (ORTHO-CYCLEN, [address] ORTHOPEDICS SPRINTEC) 0.25-35 MG-MCG [place], [place] [address] per tabl et) [phone] [address] [facility] [address] [place] [address] (Wo rk) Social History Tobacco Use Types Packs/Day Years [...] this encounter Miscellaneous Notes Telephone Encounter - Sharon Kelly RN - 11/10/2017 10:49 AM CDT Routing refill request to provider for review/approval because: Patient needs to be seen because it has been more than 1 year since last office visit. Telephone Encounter - Rosita Pineda - 11/10/2017 10:34 AM CDT Requested Prescriptions Pending Prescriptions Disp Refills ??? ESTARYLLA 0.25-35 MG-MCG per tablet [Pharmacy Med Name: ESTARYLLA TABLETS 28S] Last Written Prescription Date: 09/24/2016 Last Fill Quantity: 84 tablet, # refills: 4 Last Office Visit 09/24/2016 with [facility] or [facility] prescribing provider: Future Office Visit: 84 tablet 0 Sig: TAKE 1 TABLET BY MOUTH DAILY Contraceptives Protocol Failed 11/10/2017 10:29 AM Failed - Recent (12 mo) or future (30 days) visit within the authorizing provider's specialty Patient had office visit in the last 12 months or has a visit in the next 30 days with authorizing provider or within the authorizing provider's specialty. See Patient Info tab in inbasket, or Choose Columns in Meds & Orders section of the refill encounter. Passed - Patient is not a current smoker if age is 35 or older Passed - No active on record Passed - No positive test in past 12 months documented in this encounter Plan of Treatment Not on filedocumented as of this encounter Visit Diagnoses Diagnosis Encounter for surveillance of contracept papi pills Surveillance of previously prescribed co ntraceptive pill documented in this encounter Care Teams Speech And Hearing Director Relationship Specialty Start Date End Date Moni Key MD PCP - Assigned PCP 12/10/17 05/08/18 [address] [place] [address] Moni Key MD PCP - General Internal Medicine 11/20/17 [address] [address] Moni Key MD Assigned PCP 12/10/17 [address] [phone] documented as of this encounter
--- OUTSIDE RECORDS SUMMARY | 2021-10-12 21:29 | XMS_ITS | Encounter Summary ---
:1994 Author Organization [place] Address [address] [place] [address] Care Team Providers Name Role Phone Unavailable Primary Care Provider Unavailable Reason for Visit Reason Comments Recheck Medication Encounter Details Date Type Department Care Team Description 09/24/2016 Office Visit [facility] of contraceptive pills (Primary Dx); [facility] [place] CODY Benoit Need for HPV vaccine [address] [place] [address] [place] [address] Social History Tobacco Use Types Packs/Day Years [...] she decidesto do so. Taina Delgadillo PA-C [facility] documented in this encounter Nursing Notes Becike Lema LPN - 09/24/2016 8:20 AM CDT [...]
--- OUTSIDE RECORDS SUMMARY | 2021-10-12 21:29 | XMS_ITS | Encounter Summary ---
:1994 Author Organization [place] Address [address] [place] [address] Care Team Providers Name Role Phone Unavailable Primary Care Provider Unavailable Reason for Visit Reason Comments Physical RHM Encounter Details Date Type Department Care Team Description 11/03/2015 Office Visit [facility] Harry Moore er for surveillance of contraceptives (Primary Dx); Clinic Christine Bearden MD Screening for malignant neoplasm of cerv ix; [place] XXX RETIRED XXX Screen for STD (sexually transmitted dis ease); [address] Routine general medical examination at [place] [phone] Social History Tobacco Use Types Packs/Day [...] 9:13 AM CDT You can reach your [place] Care Team any time of the day by calling [phone]. This number will put you in touch with the 24 hour nurse line if the clinic is closed. To contact your GEOGRAPHY TEACHER Advertising Consultant please call [phone]. This is a direct number for your care team between 8 a.m. and 4 p.m. Monday through Monday. [facility] is open for your convenience: [phone] Monday through Monday 8 a.m. to 8:30 [...] first pelvic exam and Pap smear No digital strategy manager complaints No Known Allergies Past Medical History [...] Component Value Ref Test Analysis Performed At [facility] gist Range Method Time Signature Specimen Cervical [facility] Chlamydia Negative NEG INFECTIOUS Trachomatis Negative for C. trachomatis rRNA by blueprint tracer mediated amplification. DISEASE PCR A negative result [...] MICRO GENERAL ORDERABL ES Performing Organization Address [facility] Phon e Number INFECTIOUS DISEASES [address] [place] [address] DIAGNOSTIC LABORATORY, [facility] [address] [place] [address] [facility] INFECTIOUS DISEASE [address] [place], [place] [phone] [place] [address] DIAGNOSTIC LABORATORY NEISSERIA GONORRHOEA PCR (11/03/2015 8:40 AM CDT) Component Value Ref Test Analysis Performed At Patholo gist Range Method Time Signature Specimen Cervical [facility] N Gonorrhea Negative NEG INFECTIOUS PCR Negative [...] MICRO GENERAL ORDERABL ES Performing Organization Address [facility] Phon e Number INFECTIOUS DISEASES [address] [place] [address] DIAGNOSTIC LABORATORY, [facility] [address] [place] [address] [facility] INFECTIOUS DISEASE [address] [place], [place] [phone] [place] [address] DIAGNOSTIC LABORATORY Pap imaged thin layer screen only - recommended age 21 - 24 years (11/03/2015 12:00 AM CDT) Component Value Ref Test Analysis Performed At Patholo gist Range Method Time Signature PAP NIL COPATH Copath Report COPATH Patient Name: ROBYN ALLEN MR#: [id number] Specimen #: [id number] Collected: 11/03/2015 Received: 11/04/2015 Reported: 11/05/2015 11:34 [...] NABIL Kelly ??(ASCP) Processed and screened at [facility] CLINICAL HISTORY: First pap test, Papanicolaou Test Limitations: ??Cervical cytology is a scre ening test with limited sensitivity; regular screening is critical for cancer prevention; Pap tests are primarily effective for the diagnosis/prevention of squamous cell carcinoma, not adenoca rcinomas or other cancers. TESTING LAB LOCATION: [address] ??[id number] COLLECTION SITE: Client: ??[facility] Location: [facility] (S) Specimen (Source) Anatomical Collection [...]
== END 2021-10-05 09:58 | disposition home or self-care (01) ==
PROVIDERS: Visit Provider Advanced Practice Midwife
DX: Z34.91 Encounter for supervision of normal pregnancy, unspecified, first trimester (principal); Z83.49 Family history of other endocrine, nutritional and metabolic diseases; Z3A.01 Less than 8 weeks gestation of pregnancy
CPT/HCPCS: 84443; 85025; 86592; 86703; 86762; 86803; 86850; 86900; 86901; 87086; 87340

== ENCOUNTER 2021-12-31 09:00 | Outpatient (CLI) | payer BC, SELFPAY ==
--- OUTSIDE RECORDS SUMMARY | 2021-12-31 09:13 | XMS_ITS | Encounter Summary ---
:1994 Author Organization [place] Address [address] [place] [address] Care Team Providers Name Role Phone Moni Key MD Unavailable Moni Key MD Primary Care Provider Reason for Visit Reason Onset Date Comments Clinic Care Coordination - Initial 09/08/2020 Hemat ology Referral Encounter Details Date Type Department Care Team Description 09/08/2020 Telephone [facility] Courtney Khan Clin ic Care Coordination [facility] (Hematology and Clotting Disorde rs Referral) [address] [place] [phone] Social History Tobacco Use Types Packs/Day Years Used Date Smoking Tobacco: Never Smokeless Tobacco: Never Alcohol Use Standard Drinks/Week Comments Yes 0 (1 standard drink = 0.6 oz pure alcoho l) social Sex Assigned at Date Recorded Not on [...] [facility] - [phone] documented in this encounter Plan of Treatment Not on filedocumented as of this encounter Visit Diagnoses Not on filedocumented in this encounter Care Teams Cable Installer Repairer Helper Relationship Specialty Start Date End Date Moni Key MD PCP - General Internal Medicine 11/20/17 [address] [place] [phone] Moni Key MD Assigned PCP 12/10/17 [address] [place] [phone] documented as of this encounter
--- OUTSIDE RECORDS SUMMARY | 2021-12-31 09:13 | XMS_ITS | Encounter Summary ---
:1994 Author Organization [facility] Address [address] [place] [address] Care Team Providers Name Role Phone Moni Key MD Unavailable Moni Key MD Primary Care Provider Reason for Visit Reason Comments Medication Refill Encounter Details Date Type Department Care Team Description 11/10/2020 Refill [facility] Cassia Key MD Medication Refill [facility] [facility] [address] [facility] [address] [place] [address] [facility] [address] [phone] Social History Tobacco Use Types Packs/Day Years Used Date Smoking Tobacco: Never Smokeless Tobacco: Never Alcohol Use Standard Drinks/Week Comments Yes 0 (1 standard drink = 0.6 oz pure alcoho l) social Sex Assigned at Date Recorded Not on file documented as of this encounter Miscellaneous Notes Telephone Encounter - Becki Puente RN - 11/13/2020 1:29 PM CDT Attempted to contact pt. Left message to call clinic. Was she planning on ? Per the OV in September: . Encounter for routine adult health examination without abnormal findings Advised about stopping oral contraceptives, using backup method the first month, starting vitamin if she is planning . Telephone Encounter - Moni Key MD - 11/12/2020 4:37 PM CDT According to the record, this medication was discontinued in September. Please clarify with the patient if and why she stopped it in September or if that was an error. Telephone Encounter - Dana Valdez - 11/12/2020 4:30 PM CDT Patient calling and needs this refilled. Please advise ok to call and lm [phone] documented in this encounter Plan of Treatment Not on filedocumented as of this encounter Visit Diagnoses Diagnosis Encounter for surveillance of contracept papi pills Surveillance of previously prescribed co ntraceptive pill documented in this encounter Care Teams Clinical Laboratory Science Professor Relationship Specialty Start Date End Date Moni Key MD PCP - General Internal Medicine 11/20/17 [address] [place] [address] [phone] Moni Key MD Assigned PCP 12/10/17 [address] [place] [address] [phone] documented as of this encounter
--- OUTSIDE RECORDS SUMMARY | 2021-12-31 09:13 | XMS_ITS | Encounter Summary ---
:1994 Author Organization [facility] Address [address] [place] [address] Care Team Providers Name Role Phone Moni [...] on filedocumented in this encounter Care Teams Circuit Judge Relationship Specialty Start Date End Date Moni Key MD PCP - General Internal Medicine 11/20/17 [address] [place] [address] [phone] Moni Key MD Assigned PCP 12/10/17 [address] [place], [place] [phone] documented as of this encounter
--- OUTSIDE RECORDS SUMMARY | 2021-12-31 09:13 | XMS_ITS | Encounter Summary ---
:1994 Author Organization [facility] Address [address] [place] [address] Care Team Providers Name Role Phone Moni Key MD Unavailable Moni Key MD Primary Care Provider Reason for Referral Consultation (Routine) - Closed Specialty Diagnoses / Procedures Referred By Contact Refer red To Contact Medical Oncology Diagnoses Idiopathic thrombocytopenic purpura (H) Moni Key MD [facility] [address] [address] [facility] [address] [place] [address] [facility] [place] [address] Phone: Fax: Referral ID Status Reason Start Date Expiration Date Visits Requ ested Visits Authorized [id number] Closed 09/07/2020 09/07/2021 1 1 Reason for Visit Reason Comments Physical Fasting. Encounter Details Date Type Department Care Team Description 09/07/2020 Office Visit [facility] Moni Key MD Encounter for routine adult health exami nation without abnormal findings (Primary Dx); [facility] [place] [address] Idiopathic thrombocytopenic purpura (H) [address] [place] [phone] Social History Tobacco Use Types Packs/Day Years [...] Preventive Guidelines Dietary Guidelines for Americans, 2009 LS9's MyPlate ASA Prophylaxis Lung CA Screening Moni Key MD [facility] documented in this encounter Nursing Notes [...] SCREEN Routine 09/07/2020 9:16 Encounter for barbara warner Results for this REFLEX TO HCV RNA [...] direct LDL Fasting (09/07/2020 9:16 AM CDT) athologist Signature Cholesterol 146 <200 mg/dL 09/08/2020 [place] 7:18 AM T [facility] Triglycerides 80 <150 mg/dL 09/08/2020 [facility] 7:18 AM T [facility] Comment: Fasting specimen HDL Cholesterol 52 >49 mg/dL 09/08/2020 7:23 AM CDT [facility] LDL Cholesterol 78 <100 mg/dL 09/08/2020 7:23 AM CDT [facility] Comment: Desirable: <100 mg/dl Non HDL Cholesterol 94 <130 mg/dL 09/08/2020 7:23 AM CDT [facility] Specimen Anatomical Collection Method Collection Time Receive d Time (Source) Location / / Volume Laterality Blood 09/07/2020 9:16 AM 9:21 CDT AM CDT Moni Key MD LAB - BLOOD ORDERABLES Performing Organization Address City/State/ZIP Code Phon e Number [facility] [address] [place], [place] [address] [facility] [address] [address], [place] [phone] Hepatitis C Screen Reflex to HCV RNA Quant and Genotype (09/07/2020 9:16 AM CDT) Patholo gist Method Time Signature Hepatitis C Nonreactive NR^Nonrea 09/08/2020 [facility] ctive 11:53 AM CDT [facility] Comment: Assay performance characteristics have n ot been established for newborns, infants, and children Specimen Anatomical Collection Method Collection Time Receive d Time (Source) Location / / Volume Laterality Blood 09/07/2020 9:16 AM 9:21 CDT AM CDT Moni Key MD LAB - BLOOD ORDERABLES Performing Organization Address City/State/ZIP Code Phon e Number [facility] [address] [place], [place] [phone] [place] [address] (ABNORMAL) Basic metabolic panel (Ca, Cl, CO2, Creat, Gluc, K, Na, BUN) (09/07/2020 9:16 AM CDT) athologist Signature Sodium 137 133 - 144 09/08/2020 [facility] mmol/L 7:11 AM T [facility] Potassium 3.8 3.4 - 5.3 09/08/2020 [facility] mmol/L 7:11 AM T [facility] Chloride 106 94 - 109 09/08/2020 [facility] mmol/L 7:11 AM T [facility] Carbon Dioxide 29 20 - 32 09/08/2020 [facility] mmol/L 7:18 AM [facility] Anion Gap 2 (L) 3 - 14 09/08/2020 [facility] mmol/L 7:18 AM [facility] Glucose 75 70 - 99 09/08/2020 [facility] mg/dL 7:18 AM [facility] Comment: Fasting specimen Urea Nitrogen 12 7 - 30 mg/dL 09/08/2020 7:18 AM [facility] Creatinine 0.91 0.52 - 1.04 mg/dL 09/08/2020 7:18 AM [facility] GFR Estimate 87 >60 09/08/2020 7:18 AM T [facility] mL/min/{1.73_m2} [facility] Comment: Non GFR Calc Starting 02/20/2018, serum creatinine ba sed estimated GFR (eGFR) will be calculated using the Chronic Kidney Dise ase Epidemiology Collaboration (CKD-EPI) equation. GFR Estimate If >90 >60 mL/min/{1.73_m2} 09/08/2020 7: 18 AM [facility] Comment: GFR Calc Starting 02/20/2018, serum creatinine ba sed estimated GFR (eGFR) will be calculated using the Chronic Kidney Dise ase Epidemiology Collaboration (CKD-EPI) equation. Calcium 8.7 8.5 - 10.1 mg/dL 09/08/2020 7:18 AM [facility] Specimen Anatomical Collection Method Collection Time Receive d Time (Source) Location / / Volume Laterality Blood 09/07/2020 9:16 AM 9:21 CDT AM CDT Moni Key MD LAB - BLOOD ORDERABLES Performing Organization Address City/State/ZIP Code Phon e Number [facility] [address] [address] [phone] [facility] [address] [place], [place] [address] [facility] [address] [address], [place] [phone] CBC with platelets and differential (09/07/2020 9:16 AM T) [facility] Method Time Signature WBC 8.8 4.0 - 09/07/2020 [facility] 11.0 11:21 AM [facility] 10e9/L [facility] RBC Count 4.13 3.8 - 5.2 09/07/2020 [facility] 10e12/L 11:21 AM [facility] Hemoglobin 13.0 11.7 - 09/07/2020 [facility] 15.7 g/dL 11:21 AM [facility] Hematocrit 39.8 35.0 - 09/07/2020 [facility] 47.0 % 11:21 AM [facility] MCV 96 78 - 100 09/07/2020 [facility] fl 11:21 AM [facility] MCH 31.5 26.5 - 09/07/2020 [facility] 33.0 pg 11:21 AM [facility] MCHC 32.7 31.5 - 09/07/2020 [facility] 36.5 g/dL 11:21 AM [facility] RDW 13.3 10.0 - 09/07/2020 [place] 15.0 % 11:21 AM [facility] Platelet Count 273 150 - 450 09/07/2020 [facility] 10e9/L 11:21 AM [facility] % Neutrophils 57.0 % 09/07/2020 [facility] 11:21 AM [facility] % Lymphocytes 31.7 % 09/07/2020 [facility] 11:21 AM [facility] % Monocytes 8.0 % 09/07/2020 [facility] 11:21 AM [facility] % Eosinophils 3.0 % 09/07/2020 [facility] 11:21 AM [facility] % Basophils 0.3 % 09/07/2020 [place] 11:21 AM [facility] Absolute 5.0 1.6 - 8.3 09/07/2020 [facility] Neutrophil 10e9/L 11:21 AM [facility] Absolute 2.8 0.8 - 5.3 09/07/2020 [facility] Lymphocytes 10e9/L 11:21 AM [facility] Absolute 0.7 0.0 - 1.3 09/07/2020 [facility] Monocytes 10e9/L 11:21 AM [facility] Absolute 0.3 0.0 - 0.7 09/07/2020 [facility] Eosinophils 10e9/L 11:21 AM [facility] Absolute 0.0 0.0 - 0.2 09/07/2020 [facility] Basophils 10e9/L 11:21 AM [facility] Diff Method Automated 09/07/2020 [facility] Method 11:21 AM [facility] Specimen Anatomical Collection Method Collection Time Receive d Time (Source) Location / / Volume Laterality Blood 09/07/2020 9:16 AM 9:21 CDT AM CDT Moni Key MD LAB - BLOOD ORDERABLES Performing Organization Address City/State/ZIP Code Phon e Number [facility] [address] [place], [place] [address] [address] documented in this encounter Visit Diagnoses Diagnosis Encounter for routine adult health exami nation without abnormal findings - Primary Idiopathic thrombocytopenic purpura (H) Immune thrombocytopenic purpura documented in this encounter Care Teams Ignition Specialist Relationship Specialty Start Date End Date Moni Key MD PCP - General Internal Medicine 11/20/17 [address] [place], [place] [phone] Moni Key MD Assigned PCP 12/10/17 [address] [place] [address] [phone] documented as of this encounter
--- OUTSIDE RECORDS SUMMARY | 2021-12-31 09:13 | XMS_ITS | Encounter Summary ---
:1994 Author Organization [facility] Address [address] [place] [address] Care Team Providers Name Role Phone Moni Key MD Unavailable Moni Key MD Primary Care Provider Reason for Visit Reason Onset Date Comments Refill Request 08/21/2020 Encounter Details Date Type Department Care Team Description 08/21/2020 Refill [facility] Cassia Key MD Refill Request [place] [address] [place] [address] [place] [address] [phone] Social History Tobacco Use Types Packs/Day Years Used Date Smoking Tobacco: Never Smokeless Tobacco: Never Alcohol Use Standard Drinks/Week Comments Yes 0 (1 standard drink = 0.6 oz pure alcoho l) social Sex Assigned at Date Recorded Not on file documented as of this encounter Miscellaneous Notes Telephone Encounter - Roxana Christian RN - 08/21/2020 9:48 AM CDT Patient calls for refill of control pills to last until she can be seen for physical. Next 5 appointments (look out 90 days) Sep 07, 2020 8:20 AM PHYSICAL with Moni Key MD [facility] ([facility] [address] [facility] [address] Medication is being filled for 1 time refill only due to: Future appointment scheduled documented in this encounter Plan of Treatment Not on filedocumented as of this encounter Visit Diagnoses Diagnosis Encounter for surveillance of contracept papi pills Surveillance of previously prescribed co ntraceptive pill documented in this encounter Care Teams Hospice Spiritual Care Coordinator Relationship Specialty Start Date End Date Moni Key MD PCP - General Internal Medicine 11/20/17 [address] [place] [address] [phone] Moni Key MD Assigned PCP 12/10/17 [address] [place] [address] [phone] documented as of this encounter
--- OUTSIDE RECORDS SUMMARY | 2021-12-31 09:13 | XMS_ITS | Encounter Summary ---
:1994 Author Organization [facility] Address [address] [place] [address] Care Team Providers Name Role Phone Moni Key MD Unavailable Moni Key MD Primary Care Provider Reason for Visit Reason Comments Medication Refill Encounter Details Date Type Department Care Team Description 07/27/2020 Refill [facility] Cassia Key MD Medication Refill [place] [address] [facility] [address] [place] [address] [facility] [place] [address] [phone] Social History Tobacco Use Types Packs/Day Years [...] pill documented in this encounter Care Teams Qc Lab Technician Relationship Specialty Start Date End Date Moni Key MD PCP - General Internal Medicine 11/20/17 [address] [place], [place] [address] Moni Key MD Assigned PCP 12/10/17 [address] [place] [phone] documented as of this encounter
--- OUTSIDE RECORDS SUMMARY | 2021-12-31 09:13 | XMS_ITS | Encounter Summary ---
:1994 Author Organization [facility] Address [address] [place] [address] Care Team Providers Name Role Phone Moni [...] on filedocumented in this encounter Care Teams Cigar Packer And Picker Relationship Specialty Start Date End Date Moni Key MD PCP - General Internal Medicine 11/20/17 [address] [place] [address] [phone] Moni Key MD Assigned PCP 12/10/17 [address] [place] [address] documented as of this encounter
--- OUTSIDE RECORDS SUMMARY | 2021-12-31 09:14 | XMS_ITS | Encounter Summary ---
:1994 Author Organization [place] Address [facility] [place] [address] Care Team Providers Name Role Phone Unavailable Primary Care Provider Unavailable Reason for Visit Reason Onset Date Comments Panel Management 05/02/2017 Encounter Details Date Type Department Care Team Description 05/02/2017 Telephone [facility] Stella Muro Panel Management [facility] jennifer Farr PA-C [address] [facility] [phone] [place] [address] [address] [place] [address] [place], [place] [phone] (Wo rk) [address] [phone] Social History Tobacco Use Types Packs/Day Years Used Date Smoking Tobacco: Never Smokeless Tobacco: Never Alcohol Use Standard Drinks/Week Comments Yes 0 (1 standard drink = 0.6 oz pure alcoho l) social Sex Assigned at Date Recorded Not on file documented as of this encounter Miscellaneous Notes Telephone Encounter - Uyen Mendez - 05/02/2017 8:06 AM CST Panel Management Review Patient has the following on her problem list: None Composite cancer screening Chart review shows that this patient is due/due soon for the following None Summary: Patient is due/failing the following: Chlamydia screening Action needed: Patient needs office visit for chlamydia screening. Type of outreach: Sent letter. Questions for provider review: None Uyen Mendez CMA TIVE SERVICES MANAGER documented in this encounter Plan of Treatment Not on filedocumented as of this encounter Visit Diagnoses Not on filedocumented in this encounter
--- OUTSIDE RECORDS SUMMARY | 2021-12-31 09:14 | XMS_ITS | Encounter Summary ---
:1994 Author Organization [facility] Address [address] [place] [address] Care Team Providers Name Role Phone Moni Key MD Primary Care Provider Reason for Visit Reason Comments Physical fasting- Imm/Inj Encounter Details Date Type Department Care Team Description 11/20/2017 Office Visit [facility] Moni Key MD Encounter for routine adult health exami nation without abnormal findings (Primary Dx); [facility] [address] Idiopathic thrombocytopenic purpura (H); [address] Encounter for surveillance of contracept papi pills; [place], [place] Need for prophylactic vaccin ation and inoculation against influenza; [place] [address] CARDIOVASCULAR SCREENING; LDL GOAL LESS THAN 160 [...] but has been seen at a previous [facility]. She will need a refill of [...] She is , working as a physical scientist. She is not planning a family soon. [...] - FLU VACCINE, SPLIT VIRUS, IM (QUADRIVALENT) [54931]- >3 YRS - Vaccine Administration, Initial [67161] 4. Idiopathic thrombocytopenic purpura (H) No recurrence, [...] Preventive Guidelines Dietary Guidelines for Americans, 2009 Insure[employer]'s MyPlate ASA Prophylaxis Lung CA Screening Moni Key MD [facility] Answers for HPI/ROS submitted by the patient [...] gist Method Time Signature Specimen Urine 11/20/2017 [facility] [place] Description 11:16 AM CDT [facility] Chlamydia Negative NEG^Negat 11/21/2017 [facility] Trachomatis PCR papi 12:27 PM CDT [facility] Comment: Negative for C. trachomatis rRNA by dueñas scription mediated amplification. A negative result by roller setter media carly amplification does not preclude the [...] Organization Address City/State/ZIP Code Phon e Number [address] [address] [facility] [address] [place], [place] [address] [address] [place] GONORRHO[facility] PCR (11/20/2017 9:41 AM CDT) Analysis Performed At Path logist Time Signature Specimen Urine 11/20/2017 [facility] Descrip 11:16 AM CDT [facility] N Gonorrhea Negative NEG^Negati 11/21/2017 [facility] PCR ve 12:27 PM CDT [facility] Comment: Negative for N. gonorrhoeae rRNA by dueñas scription mediated amplification. A negative result by roller setter media carly amplification does not preclude the [...] Organization Address City/State/ZIP Code Phon e Number [address] [address] [facility] [address] [place], [place] [address] [address] documented in [...] 160 documented in this encounter Care Teams Slide Fasteners Inspector Relationship Specialty Start Date End Date Moni Key MD PCP - General Internal Medicine 11/20/17 [address] [place] [address] documented as of this encounter
--- OUTSIDE RECORDS SUMMARY | 2021-12-31 09:14 | XMS_ITS | Encounter Summary ---
:1994 Author Organization [facility] Address [address] [place] [address] Care Team Providers Name Role Phone Moni Key MD Unavailable Moni Kye MD Primary Care Provider Reason for Visit Reason Comments Medication Refill ESTARYLLA 0.25-35 [facility] Encounter Details Date Type Department Care Team Description 02/18/[address] [facility] Moni Key MD Medication Refill Clinic [place] [address] ([place] 0.25-35 [address] MG-[facility]G ) [place] [address] [place], [place] [phone] (Wo rk) [address] [phone] Social History Tobacco Use Types Packs/Day Years [...] to: pt has a future appt scheduled. UNTS RECEIVABLE EXECUTIVE Telephone Encounter - Dania Heck - 02/18/2019 2:32 PM CST Requested Prescriptions Pending Prescriptions Disp Refills ??? ESTARYLLA 0.25-35 [facility] tablet [Pharmacy Med Name: ESTARYLLA Last Written Prescription Date: 11/20/2017 Last Fill Quantity: 84, # refills: 4 Last office visit: 11/20/2017 with prescribing provider: Future Office Visit: Next 5 appointments (look out 90 days) Mar 19, 2019 8:00 AM ACCOUNTS RECEIVABLE EXECUTIVE PHYSICAL with Moni Key MD [facility] ([facility]) [address] [place] [facility] [phone] TABLETS 28S] 84 tablet 0 Sig: TAKE [...] No positive test in past 12 months UNTS RECEIVABLE EXECUTIVE documented in this encounter Plan of Treatment Not on filedocumented as of this encounter Visit Diagnoses Diagnosis Encounter for surveillance of contracept papi pills Surveillance of previously prescribed co ntraceptive pill documented in this encounter Care Teams Senior Network Security Engineer Relationship Specialty Start Date End Date Moni Key MD PCP - General Internal Medicine 11/20/17 [address] [place] [address] Moni Key MD Assigned PCP 12/10/17 [address] [place] [address] documented as of this encounter
--- OUTSIDE RECORDS SUMMARY | 2021-12-31 09:14 | XMS_ITS | Encounter Summary ---
:1995 Author Organization [facility] Address [address] [place] [address] Care Team Providers Name Role Phone Moni Key MD Unavailable Moni Key MD Primary Care Provider Reason for Visit Reason Comments Physical Fasting. Refill for co ntrol pill Encounter Details Date Type Department Care Team Description 03/19/2019 Office Visit [facility] Moni Key MD Encounter for routine adult health exami nation without abnormal findings (Primary Dx); [facility] [address] Encounter for surveillance o f contraceptive pills; [address] Screening for malignant [place] [address] [phone] Social History Tobacco Use Types Packs/Day Years Used Date Smoking Tobacco: Never Smokeless Tobacco: Never Alcohol Use Standard Drinks/Week Comments Yes 0 (1 standard drink = 0.6 oz pure alcoho l) social Sex Assigned at Date Recorded Not on file documented as of this encounter Last Filed Vital Signs Vital Sign Reading Time Taken Comments Blood Pressure 138/80 03/19/2019 8:15 AM RETAIL ACCOUNT REPRESENTATIVE Pulse 99 03/19/2019 8:15 AM RETAIL ACCOUNT REPRESENTATIVE Temperature 36.8 ??C (98.3 ??F) 03/19/2019 8:15 AM RETAIL ACCOUNT REPRESENTATIVE Respiratory Rate 14 03/19/2019 8:15 AM RETAIL ACCOUNT REPRESENTATIVE Oxygen Saturation 98% 03/19/2019 8:15 AM RETAIL ACCOUNT REPRESENTATIVE Inhaled Oxygen Concentration - - Weight 68 kg (149 lb 14.4 oz) 03/19/2019 8:15 AM RETAIL ACCOUNT REPRESENTATIVE Height 180.3 cm (5' 11) 03/19/2019 8:15 AM RETAIL ACCOUNT REPRESENTATIVE Body Mass Index 20.91 03/19/2019 8:15 AM RETAIL ACCOUNT REPRESENTATIVE documented in this encounter Patient Instructions Patient [...] Your Body mass index is 20.91 kg/m??.., [place] ACCOUNT REPRESENTATIVE documented in this encounter Progress Notes Moni [...] Prophylaxis Lung CA Screening Moni Key MD [facility] [place] ACCOUNT REPRESENTATIVE documented in this encounter Nursing Notes Sarkis Sandhu MA - 03/19/2019 8:00 AM CST BP 138/80 (BP Location: Left arm, Patient Position: Sitting, Cuff Size: Adult Regular) Pulse 99 Temp 98.3 ??F (36.8 ??C) (Oral) Resp 14 Ht 1.803 m (5' 11) Wt 68 kg (149 lb 14.4 oz) LMP 03/12/2019 SpO2 98% BMI 20.91 kg/m?? [place] ACCOUNT REPRESENTATIVE documented in this encounter Miscellaneous Notes Result Encounter Note - Domi Lambert RN - 03/19/2019 8:00 AM RETAIL ACCOUNT REPRESENTATIVE Awaiting HPV. Domi Lambert MIX HOUSE OPERATOR, Pap Tracking [place] ACCOUNT REPRESENTATIVE Addendum Note - Leda Suárez MA - 03/19/2019 8:00 AM RETAIL ACCOUNT REPRESENTATIVE Addended by: LEDA SUÁREZ on: 03/19/2019 12:55 PM Modules accepted: Orders [place] ACCOUNT REPRESENTATIVE documented in this encounter Plan of Treatment Not on filedocumented as of this encounter Procedures Procedure Name Priority Date/Time Associated Diagnosis Comme nts PAP IMAGED THIN Routine 03/19/2019 12:55 Screening for Results for this LAYER SCREEN PM RETAIL ACCOUNT REPRESENTATIVE malignant neoplasm procedure are in of cervix the results section. HPV HIGH RISK TYPES Routine 03/19/2019 8:30 AM Screening for R esults for this DNA CERVICAL RETAIL ACCOUNT REPRESENTATIVE malignant neoplasm procedure are in of cervix the results section. NEISSERIA Routine 03/19/2019 8:30 AM Encounter for Results for this GONORRHOEAE PCR RETAIL ACCOUNT REPRESENTATIVE routine adult health proc edure are in examination without the resu lts abnormal findings section. CHLAMYDIA Routine 03/19/2019 8:30 AM Encounter for Results for this TRACHOMATIS PCR RETAIL ACCOUNT REPRESENTATIVE routine adult health proc edure are in examination without the resu lts abnormal findings section. documented in this encounter Results Pap imaged thin layer screen with HPV - recommended age 30 - 65 years (select HPV order below) (03/19/2019 12:55 PM RETAIL ACCOUNT REPRESENTATIVE) Component Value Ref Test Analysis Performed At [facility] Range Method Time Signature PAP NIL COPATH Copath Report COPATH Patient Name: JENNY ALLEN MR#: [id number] Specimen #: [id number] Collected: 03/19/2019 Received: 03/20/2019 Reported: 03/22/2019 09:48 [...] or other cancer s. COLLECTION SITE: Client: ??[facility] Location: [place] (Tracey) The technical component of this testing was completed at the [facility], with the professional compo nent performed at the [facility], [address] [place] [address], [place] [address] ([phone]) Specimen (Source) Anatomical Collection Method Collection Time Re ceived Time Location / / Volume Laterality Cytologic 03/19/2019 12:55 03/20/2019 material PM RETAIL ACCOUNT REPRESENTATIVE 10:09 AM RETAIL ACCOUNT REPRESENTATIVE (specimen) Moni Key MD LAB - OPTIME CLINICAL SPECIM EN Performing Organization Address City/State/ZIP Code Phon e Number COPATH HPV High Risk Types DNA Cervical (03/19/2019 8:30 AM RETAIL ACCOUNT REPRESENTATIVE) [facility] Method Time Signature HPV Source [facility] 03/19/2019 [facility] 12:55 PM RETAIL ACCOUNT REPRESENTATIVE [facility] HPV 16 DNA Negative NEG^Negat 03/26/2019 [facility] papi 2:59 PM RETAIL ACCOUNT REPRESENTATIVE [facility] HPV 18 DNA Negative NEG^Negat 03/26/2019 [facility] 2:59 PM [facility] Other HR HPV Negative NEG^Negat 03/26[facility] PM RETAIL ACCOUNT REPRESENTATIVE [facility] Final This 03/26/2019 [facility] patient's 2:59 PM [facility] sample is [facility] negative for CAMPUS HPV DNA. Comment: This test was developed and its performa nce characteristics determined by the [facility], Molecular Diagnostics Laboratory. It has not [...] Description Cervical Cells 03/19/2019 12: 55 PM [facility] Comment: [id number] Specimen Anatomical Collection Method Collection Time Receive d Time (Source) Location / / Volume Laterality Cervical Cells 03/19/2019 8:30 AM 020 2:02 RETAIL ACCOUNT REPRESENTATIVE PM RETAIL ACCOUNT REPRESENTATIVE Moni Key MD LAB - BLOOD ORDERABLES Performing Organization Address City/[facility]/ZIP Code Phon e Number [address] [address] [facility] [address] [place], [place] [address] [address] CHLAMYDIA TRACHOMATIS PCR (03/19/2019 8:30 AM RETAIL ACCOUNT REPRESENTATIVE) [email or web address] Method Time Signature Specimen Endocervical 03/19/2019 [place] Description 9:23 AM RETAIL ACCOUNT REPRESENTATIVE [facility] Chlamydia Negative NEG^Negat 03/20/2019 INFECTIOUS Trachomatis PCR papi 1:23 PM RETAIL ACCOUNT REPRESENTATIVE [facility] Comment: Negative for C. trachomatis rRNA by dueñas scription mediated amplification. A negative result by billboard erector media carly amplification does not preclude the presence of C. trachomatis infection because results are dependent on proper and adequate collection, absence of inhibitors, and sufficient rRNA to be detected. Specimen (Source) Anatomical Collection Method Collection Time Re ceived Time Location / / Volume Laterality Endocervical 03/19/2019 8:30 03/19/2019 9 :22 cytologic material AM RETAIL ACCOUNT REPRESENTATIVE AM RETAIL ACCOUNT REPRESENTATIVE (specimen) Moni Key MD LAB - MICRO GENERAL ORDERABL ES Performing Organization Address [facility] Phon e Number INFECTIOUS DISEASES [address] [place] [address] DIAGNOSTIC LABORATORY, [facility] [address] [place] [address] [address] INFECTIOUS DISEASES [address] [place] [address], A DI[facility]STIC LABORATORY NEISSERIA GONORRHOEA PCR (03/19/2019 8:30 AM RETAIL ACCOUNT REPRESENTATIVE) [facility] Method Time Signature Specimen Endocervical 03/19/2019 [place] Descrip 9:23 AM RETAIL ACCOUNT REPRESENTATIVE [facility] N Gonorrhea Negative NEG^Negat 03/20/2019 INFECTIOUS PCR papi 1:23 PM RETAIL ACCOUNT REPRESENTATIVE [facility] Comment: Negative for N. gonorrhoeae rRNA by dueñas scription mediated amplification. A negative result by billboard erector media carly amplification does not preclude the presence of N. gonorrhoeae infection because results are dependent on proper and adequate collection, absence of inhibitors, and sufficient rRNA to be detected. Specimen (Source) Anatomical Collection Method Collection Time Re ceived Time Location / / Volume Laterality Endocervical 03/19/2019 8:30 03/19/2019 9 :22 cytologic material AM RETAIL ACCOUNT REPRESENTATIVE AM RETAIL ACCOUNT REPRESENTATIVE (specimen) Moni Key MD LAB - MICRO GENERAL ORDERABL ES Performing Organization Address City/State/ZIP Code Phon e Number INFECTIOUS DISEASES [address] [place] [address] DIAGNOSTIC LABORATORY, [facility] [address] [place] [address] [phone] [address] INFECTIOUS DISEASES [address] [place] [address], A DI[facility]STIC LABORATORY documented in this encounter Visit Diagnoses Diagnosis Encounter for routine adult health exami nation without abnormal findings - Primary Encounter for surveillance of contracept papi pills Surveillance of previously prescribed co ntraceptive pill Screening for malignant neoplasm of cerv ix Screening for malignant neoplasm of the cervix documented in this encounter Care Teams Optics Manufacturing Technician Relationship Specialty Start Date End Date Moni Key MD PCP - General Internal Medicine 11/20/17 [address] [place] [address] [phone] Moni Key MD Assigned PCP 12/10/17 [address] [place] [address] [phone] documented as of this encounter
--- OUTSIDE RECORDS SUMMARY | 2021-12-31 09:14 | XMS_ITS | Encounter Summary ---
:1995 Author Organization [facility] Address [address] [place] [address] Care Team Providers Name Role Phone Unavailable Primary Care Provider Unavailable Reason for Visit Reason Comments Recheck Medication Encounter Details Date Type Department Care Team Description 09/24/2016 Office Visit [facility] Taina Delgadillo er for surveillance of contraceptive pills (Primary Dx); [facility] [place] [facility] [place] Need for HPV vaccine [address] ORTHOPEDICS [address] [place] [address] [phone] Social History Tobacco Use Types Packs/Day Years Used Date Smoking Tobacco: Never Smokeless Tobacco: Never Tobacco Cessation: Counseling Given: No Alcohol Use [...] she decidesto do so. Taina Delgadillo PA-C [facility] documented in this encounter Nursing Notes Beckie [...]
--- OUTSIDE RECORDS SUMMARY | 2021-12-31 09:14 | XMS_ITS | Encounter Summary ---
:1995 Author Organization [facility] Address [facility] [place] [address] Care Team Providers Name Role Phone Unavailable Primary Care Provider Unavailable Reason for Visit Reason Onset Date Comments Panel Management 07/26/2017 Encounter Details Date Type Department Care Team Description 07/26/2017 Telephone [facility] Stella Muro Panel Management [facility] jennifer Farr PA-C [address] [facility] [id number] [place] [address] [address] [place] [address] [place], [place] [phone] (Wo rk) [address] [phone] Social History Tobacco Use Types Packs/Day Years Used Date Smoking Tobacco: Never Smokeless Tobacco: Never Alcohol Use Standard Drinks/Week Comments Yes 0 (1 standard drink = 0.6 oz pure alcoho l) social Sex Assigned at Date Recorded Not on file documented as of this encounter Miscellaneous Notes Telephone Encounter - Uyen Mendez - 07/26/2017 7:35 AM CDT Panel Management [...]
--- OUTSIDE RECORDS SUMMARY | 2021-12-31 09:14 | XMS_ITS | Encounter Summary ---
:1995 Author Organization [facility] Address [address] [place] [address] Care Team Providers Name Role Phone Unavailable Primary Care Provider Unavailable Reason for Visit Reason Comments Physical RHM Encounter Details Date Type Department Care Team Description 11/03/[address] [facility] Harry [place] er for surveillance of contraceptives (Primary Dx); Clinic Christine Bearden MD Screening for malignant neoplasm of cerv ix; [place] XXX RETIRED XXX Screen for STD (sexually transmitted dis ease); [address] Routine general medical examination at [place] [phone] Social History Tobacco Use Types Packs/Day Years Used Date Smoking Tobacco: Never Alcohol Use Standard Drinks/Week Comments [...] documented in this encounter Patient Instructions Patient InstructionsJohnson, Maggie C, VAN DRIVER - 11/03/2015 9:13 AM CDT You can reach your [facility] Care Team any time of the day by calling [phone]. This number will put you in touch with the 24 hour nurse line if the clinic is closed. To contact your REIKI PRACTITIONER Agriculture Intern please call [phone]. This is a direct number for your care team between 8 a.m. and 4 p.m. Monday through Monday. [facility] is open for your convenience: [phone] Monday through Monday 8 a.m. to 8:30 [...] first pelvic exam and Pap smear No branch lending officer complaints No Known Allergies Past Medical History [...] The following HM Due: pap smear Chalmydia (13-24) Pap done 1st pap today Mammo done [...] Component Value Ref Test Analysis Performed At [facility] Range Method Time Signature Specimen Cervical [facility] Chlamydia Negative NEG INFECTIOUS Trachomatis Negative for C. trachomatis rRNA by driver starting gate mediated amplification. DISEASE PCR A negative result [...] Code Phon e Number INFECTIOUS DISEASES [address] [place] [address] DIAGNOSTIC LABORATORY, [facility] [address] [place] [address] [facility] INFECTIOUS DISEASE [address] [place], [place] [phone] [place] [address] DIAGNOSTIC LABORATORY NEISSERIA GONORRHOEA PCR (11/03/2015 8:40 AM CDT) Component Value Ref Test Analysis Performed At [facility] Range Method Time Signature Specimen Cervical [facility] N Gonorrhea Negative NEG INFECTIOUS PCR Negative [...] Code Phon e Number INFECTIOUS DISEASES [address] [place] [address] DIAGNOSTIC LABORATORY, [facility] [address] [address] [facility] INFECTIOUS DISEASE [address] [place] [phone] [place] [address] DIAGNOSTIC LABORATORY Pap imaged thin layer screen only - recommended age 21 - 24 years (11/03/2015 12:00 AM CDT) Component Value Ref Test Analysis Performed At [facility] Range Method Time Signature PAP NIL COPATH Copath Report COPATH Patient Name: ROBYN ALLEN MR#: [id number] Specimen #: [id number] Collected: 11/03/2015 Received: 11/04/2015 Reported: 11/05/2015 11:34 [...] NABIL Kelly ??(ASCP) Processed and screened at [facility] CLINICAL HISTORY: First pap test, Papanicolaou Test Limitations: ??Cervical cytology is a scre ening test with limited sensitivity; regular screening is critical for cancer prevention; Pap tests are primarily effective for the diagnosis/prevention of squamous cell carcinoma, not adenoca rcinomas or other cancers. TESTING LAB LOCATION: [address] ??[address] COLLECTION SITE: Client: ??[facility] Location: [facility] (S) Specimen (Source) [...]
--- NOTE | 2021-12-31 09:15 | CRLHL7_ITS ---
For Patients: As a result of the Century Cures Act, medical imaging exams and procedure reports are released immediately into your electronic medical record. You may view this report before your referring provider. If you have questions, please contact your health care provider. INDICATION: Evaluate anatomy. COMPARISON: 10/05/2021 TECHNIQUE: Real time huerta scale imaging of the fetus was performed as well as color Doppler analysis of the umbilical vessels. FINDINGS: Sonographic imaging demonstrates a single living intrauterine gestation. Fetus demonstrates a regular cardiac rate of 149 beats per minute. Fetus has a variable position. The placenta lies posteriorly without evidence of placenta previa. The edge of the placenta is located 7.7 cm from the internal cervical os. Amniotic fluid volume appears normal. Single deepest vertical pocket: 4.5 cm. The cervix is closed and measures 3.7 cm in length. The composite ultrasound gestational age is calculated at 20 weeks 0 days with an estimated sonographic due date of 05/20/2022. The estimated weight is 318 grams which lies at the 46th %. The following biometric measurements were obtained: Biparietal diameter: 4.6 cm/20 weeks 0 days 56th% Head circumference: 17.2 cm/19 weeks 6 days 40th% Abdominal circumference: 14.5 cm/19 weeks 6 days 44th% Femur length: 3.2 cm/19 weeks 6 days 44th% The HC/AC ratio measures: 1.19 range (1.08-1.25) On anatomic survey, there is a normal appearance of the cerebral ventricles, cavum septi pellucidi, cisterna magna and cerebellum. The nose, lips, and facial profile appear normal. The cervical, thoracic and lumbar spine are well visualized and appear normal. There is a normal four-chamber heart view and the left and right ventricular outflow tracts appear normal. The diaphragm and stomach appear normal. The kidneys and bladder also appear normal. There is a normal three-vessel cord and cord insertion site. The four extremities appear normal. IMPRESSION: Normal OB ultrasound exam with concordance of clinical and sonographic dating. No intrinsic abnormalities noted on anatomic survey. Dictated by Duncan Mora MD @ 12/31/2021 11:58:29 AM (Electronically Signed)
== END 2021-12-31 09:01 | disposition home or self-care (01) ==
PROVIDERS: Visit Provider Advanced Practice Midwife
DX: Z34.92 Encounter for supervision of normal pregnancy, unspecified, second trimester (principal); Z3A.20 20 weeks gestation of pregnancy
CPT/HCPCS: 76805

== ENCOUNTER 2022-02-22 13:25 | Outpatient (CLI) | payer BC, SELFPAY ==
[2022-02-24 08:42] LABS: Rapid Plasma Reagin (RPR) Non Reactive (Non Reactive)
== END 2022-02-22 13:26 | disposition home or self-care (01) ==
PROVIDERS: Visit Provider Advanced Practice Midwife
DX: Z34.83 Encounter for supervision of other normal pregnancy, third trimester (principal); Z67.11 Type A blood, Rh negative; Z3A.27 27 weeks gestation of pregnancy
CPT/HCPCS: 86592; 86850

== ENCOUNTER 2022-04-22 14:20 | Outpatient (CLI) | payer BC, SELFPAY ==
[2022-04-23 14:29] LABS: Strep B DNA Probe NEGATIVE (Negative)
[2022-05-02 14:07] LABS: Strep B Pen/Amox Allergy No
== END 2022-04-22 14:21 | disposition home or self-care (01) ==
PROVIDERS: PCP Advanced Practice Midwife; Visit Provider Advanced Practice Midwife
DX: Z34.93 Encounter for supervision of normal pregnancy, unspecified, third trimester (principal); Z3A.35 35 weeks gestation of pregnancy
CPT/HCPCS: 87081; 87653

== ENCOUNTER 2022-04-29 14:51 | Outpatient (CLI) | payer BC, SELFPAY ==
[2022-04-29 15:18] VITALS: BP 126/74; PULSE 85; RESP 18; TEMP 37.1
[2022-04-29 15:23] VITALS: PULSE 80; O2SAT 96
[2022-04-29 15:33] VITALS: BP 126/75; PULSE 82
[2022-04-29 15:36] LABS: Alanine Aminotransferase* 23 U/L (4-35); Aspartate Amino Transferase* 26 U/L (12-35); Blood Urea Nitrogen* 11 mg/dL (5-24); Creatinine* 0.5 mg/dL (0.5-1.5); Estimated Glomerular Filt Rate 132 ml/min
[2022-04-29 15:37] LABS: Total Protein Urine 9 mg/dL
[2022-04-29 15:38] LABS: Creatinine Urine 110.3 mg/dL
[2022-04-29 15:41] LABS: Hematocrit 37.2 % (33.0-51.0); Hemoglobin* 12.5 gm/dL (12.0-16.0); Mean Corpuscular HGB Conc 34 gm/dL (32-36); Mean Corpuscular Hemoglobin 33 pg (26-34); Mean Corpuscular Volume 98 fL (80-100); Platelet Count* 324 K/uL (140-440); Red Blood Count 3.79 m/uL (4.00-5.20); White Blood Count* 15.28 K/uL (4.50-11.00)
[2022-04-29 15:49] VITALS: BP 126/75; PULSE 75
[2022-04-29 15:51] LABS: Slide Review Reflex No
--- NOTE | 2022-04-29 16:21 | PC.OBNST ---
NST Note NST Note Start: 04/29/22 14:57 Freq: ONCE Status: Active Protocol: Document 04/29/22 16:00 ANDREW (Rec: 04/29/22 16:21 ANDREW [id number]) NST Note 1 Para (# of births) 0 EDC 05/21/22 Gestational Age In Weeks & Days 36 Weeks & 6 Days Patient Presented with Complaint(s) of Other Other Complaints Pt. had an elevated BP in clinic 140/72, was sent to Center for Pre E labs, EFM, serial BP's. Reactive Yes Appropriate for Gestational Age Yes DAVID Herrera Date 04/29/22 Reactive Yes Appropriate for Gestational Age Yes DAVID Briones RN Date 04/29/22 OB NST charge Yes Complete NST Note via Write Note Yes The provider's electronic signature indicates the NST is reactive/appropriate for gestational age. *Note to provider: If an addendum is required, open the patient's chart and click on the note under the Nurse/Allied Health tab.
== END 2022-04-29 16:12 | disposition home or self-care (01) ==
LOC: OB OUT 14:51 → OB 14:53
PROVIDERS: Advanced Practice Midwife; PCP Advanced Practice Midwife; Visit Provider Advanced Practice Midwife
DX: Z34.93 Encounter for supervision of normal pregnancy, unspecified, third trimester (principal); Z3A.35 35 weeks gestation of pregnancy
CPT/HCPCS: 36415; 59025; 82565; 82570; 84156; 84450; 84460; 84520; 85027; 99213

== ENCOUNTER 2022-05-24 16:08 | Inpatient (IN) | payer BC, SELFPAY ==
[2022-05-24] VITALS (44 sets, daily range): BP systolic 124–159; BP diastolic 58–89; PULSE 66–109; RESP 20; TEMP 36.5–37.4; O2SAT 93–100
--- NOTE | 2022-05-24 11:51 | W.PM.LDBA ---
Subjective History of Present Illness Time Seen by Provider: 11:05 Date Seen: 05/24/22 Narrative: Patient is being admitted to Labor and Delivery for labor. She is a 26 year old at weeks gestation. Her full history and physical was dictated by Deepa Seth on 05/04/22. Please see this for details. She states ctx started around 0700. Breathing through intense ctx in good control. Partner by bedside for support. 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 Feeling anxiety related to knowing about these births and their outcomes. 1. Dating by 1st trimester US 2. 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 Mother had pre-e. Recommend baby aspirin starting at 12 weeks. 4. Echo and Holter monitor in 2011 r/t syncope all normal. 5. Blood Type A- Needs Rhogam at 28 weeks: given 02/22/22 Needs Rhogam pp 6. Elevated BP without diagnosis of HTN 04/29 BP 140/72 in clinic, NO REPEAT DONE IN CLINIC Labs WNL, p/c ratio 0.00 COVID: Fully vaccinated, not boosted. 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 1. Admit to L & D 2. Expectant management at this time 3. Candidate for analgesia of choice. Initially planning unmedicated, but has now decided to proceed with an epidural 4. IV access and continuous monitoring r/t epidural placement 5. Anticipate progress to NVD Delivery/Labor/Induction Plan Plan: expectant management OB Exam Physical Exam Vital signs: Temp Pulse BP 97.9 F 71 134/73 05/24/22 11:06 05/24/22 11:04 05/24/22 11:04 Narrative: VSS, afebrile? General Appearance:? Calm, cooperative.? No acute distress.? Normal affect.? Psychiatric Exam: Alert and oriented, appropriate affect? HEENT: normocephalic, neck supple, full ROM? CHEST:? Symmetrical chest wall movement.? Normal respiratory effort.? Clear to auscultation? HEART:? regular rate and rhythm? Abdomen: Gravid, non tender? EXTREMITIES:? normal and trace edema? SKIN: warm, dry.??? Ctx:? Q 2 min apart.? ? Strong? FHTs:? Baseline: ?130??? Variability: mod?? Accels: present??? Decels:? none? SVE: 4/100/+2 per RN? Membranes: intact?
[2022-05-24] MEDS: LACTATED RINGERS 1000 ML 1,000 ML 125 ML IV (12:10)
[2022-05-24 12:31] LABS: Basophils Percent Auto 0.2 % (0.0-3.0); Eosinophils Percent Auto 1.5 % (0.0-7.0); Hematocrit 38.6 % (33.0-51.0); Hemoglobin* 13.1 gm/dL (12.0-16.0); Lymphocytes Percent Auto 10.9 % (20-44); Mean Corpuscular HGB Conc 34 gm/dL (32-36); Mean Corpuscular Hemoglobin 33 pg (26-34); Mean Corpuscular Volume 96 fL (80-100); Monocytes Percent Auto 4.4 % (0.0-11.0); Platelet Count* 328 K/uL (140-440); RDW Coefficient of Variation % 13.6 % (11.5-15.5); Red Blood Count 4.03 m/uL (4.00-5.20)
[2022-05-24 12:48] LABS: Slide Review Reflex No
[2022-05-24] MEDS: ROPIVACAINE 0.2% 100 ml 100 ML 12 MG EPIDURAL (13:02)
[2022-05-24] MEDS: LIDOCAINE 2% (PF) 5 ML VIAL EPIDURAL (13:02)
[2022-05-24] MEDS: ROPIVACAINE 0.2 % PF 10 ML INJ 20 MG EPIDURAL (13:02)
--- NOTE | 2022-05-24 13:04 | P.ANBPRC_ITS ---
PFSH PFSH Surgical History History of splenectomy History of tonsillectomy Family History Paternal Grandmother Irregular heart beat Mother Hypothyroid History of pre-eclampsia Maternal Grandmother Dementia Social History Narrative: SOCIAL ? Partner: [employer] home care physical therapist ? Lives with:? Lives with partner Pets: 2 dogs? Abuse:? Denies past/present ? Ok with a blood transfusion:? yes ? Culture or rastafarian beliefs:? denies? RISK FACTORS ? Chicken Pox:? Yes as a child ? MRSA:? Denies What is your current living situation: I presently have a place to live Are you following a diet prescribed by a doctor: No Are you following a special diet: No Do you want help finding or keeping work or a job: I do not need or want help Previous occupational history: speech and language assistant, pediatrics Known occupational exposures/hazards: No Highest level of school completed/degree received: Associate degree: occupational, technical, vocational program Do you want help with school or training: No Physical activity type: walking and weight lifting Physical activity type details: Walking daily; weight train 3x per week How many days of moderate to strenuous exercise, like a brisk walk, did you do in the last 7 days: 7 Smoking Status: Never smoker Do you use any of these nicotine containing products: None Second hand tobacco smoke exposure: No How often do you have a drink containing alcohol: never AUDIT-C Alcohol total score: 0 Non-prescribed substance use: denies use Caffeine: Yes (Occasional) Little interest or pleasure in doing things: not at all Feeling down, depressed, or hopeless: not at all Are you currently sexually active: Yes Are you using contraception or practicing any form of control: No Meds Home Medications and Allergies Home Medications Medication Instructions Recorded Confirmed Type ascorbate calcium (vitamin C) 500 500 mg PO QDAY 10/05/21 05/20/22 History mg tablet omega 7-tin-rpk-fish oil 900 cap PO 10/05/21 05/20/22 History mg-1,400 mg capsule,delayed release (Fish Oil) prenat.vits,jimbo,oik-kapc-awmcu 1 tab PO QDAY 10/05/21 05/20/22 History cholecalciferol (vitamin D3) 10 10 mcg PO QDAY 11/05/21 05/20/22 History mcg (400 unit) capsule aspirin 81 mg chewable tablet 81 mg PO QDAY 12/03/21 05/20/22 History magnesium 200 mg tablet 200 mg PO QDAY 03/24/22 05/20/22 History collagen PO 04/07/22 05/20/22 History Allergies Allergy/AdvReac Type Severity Reaction Status Date / Time No Known Drug Allergies Allergy Verified 05/20/22 15:39 Results Labs Labs: Laboratory Results - last 24 hr 05/24/22 12:08 WBC 22.40 H RBC 4.03 Hgb 13.1 Hct 38.6 MCV 96 MCH 33 MCHC 34 RDW Coeff of Dany 13.6 Plt Count 328 Neut % (Auto) 82.0 H Lymph % (Auto) 10.9 L [place] % (Auto) 4.4 Eos % (Auto) 1.5 Baso % (Auto) 0.2 Neut # (Auto) 18.40 H Lymph # (Auto) 2.40 [place] # (Auto) 1.00 H Eos # (Auto) 0.30 Baso # (Auto) 0.00 Vital Signs Vital Signs: Last Vital Signs Temp 97.9 F 05/24/22 11:06 Pulse 91 05/24/22 12:59 BP 146/71 H 05/24/22 13:03 Pulse Ox 100 05/24/22 12:59 Weight: 68.039 kg Height: 180.34 cm Anesthesia Procedures Epidural Insertion Patient Location: OB Start Time: 12:00 Stop Time: 13:04 Start Date: 05/24/22 Stop Date: 05/24/22 Reason for Block: procedure for pain Patient Position: sitting Performed By: Kike Medina Preanesthetic Checklist: IV checked, risks and benefits discussed, surgical consent, monitors and equipment checked, pre-op evaluation, timeout performed and anesthesia consent Prep: chlorhexidine gluconate Monitoring: blood pressure monitoring, continuous pulse oximetry and heart rate Approach: midline Vertebral Space: lumbar (1-5) Epidural Technique: SAKSHI air Needle Type: Tuohy needle Injection Technique: continuous catheter Needle gauge: 17 Needle Length (cm): 10 cm Needle Insertion Depth (cm): 7 Catheter Gauge: 19 Catheter Type: multi-orifice Catheter at skin depth (cm): 13 Test Dose Result: negative and lidocaine 1.5% with epinephrine 1 to 200,000
[2022-05-24 14:16] LABS: SARS PCR* Negative SARS-CoV-2 (Negative)
[2022-05-24] MEDS: ONDANSETRON 2 MG/ML inj 4 MG IV (15:32)
[2022-05-24] MEDS: OXYTOCIN 30 unit/500 ML in NS 30 UNIT/500 ML BAG 300 UNIT IVPB (16:10)
--- NOTE | 2022-05-24 17:09 | W.PM.OBVAGDE ---
OB Procedure Vag Delivery Mother Details Mother Details: The patient is a 26 year-old, 1, Para 0, admitted on 05/24/22 at 40.3 Days gestation. : 1 Para: 1 Weeks Gestation: 40.3 Admission Date: 05/24/22 Additional Details Amniotic Membrane Status: SROM (time unknown, clear) Amniotic Membrane Rupture Date: 05/24/22 Amniotic Membrane Fluid Description: Clear Analgesia/Anesthesia Type: Epidural Waterbirth: No Pitcoin: No Intrapartal Events: None Labor Onset: 07:00 Complete: 13:36 Pushin:35 Heart: heart tones during second stage: baseline 135, rising to 165. Variable decels with pushing/ctx, good return to baseline between. Delivery Details Delivery Date: 05/24/22 Delivery Time: 16:08 Route of delivery: Infant Gender: Female Infant Viability: Alive; Heart Rate Present Position at Delivery: OA Delivery Details: Robyn arrived with intense ctx. Decision made to proceed with an epidural. She was noted shortly there after to have pressure, and noted to be complete, baby low in pelvis. Attempted pushing with some descent. But she was having difficulty w/ pushing, likely r/t recently placed epidural. Decision made to labor down. She was then noted to have increasing discomfort with the ctx, and baby was noted to be lower in the pelvis. Pushing initiated again, with good progress. Variable decels noted w/ pushing, but good return to baseline and good descent. At 1608 a viable? female delivered in vertex OA presentation over intact perineum via spontaneous vaginal?delivery. ?Dad assisted hand over hand w/ delivery per his request. Infant was placed on maternal abdomen. ?Cord was clamped and cut after a 5+ minute delay.? Nose and mouth were bulb suctioned.? weight pending. ? 7 at 1 minute and 8 at 5 minutes. ?Shoulder dystocia: no. ?Nuchal cord: no. Placenta delivered spontaneously and complete at 1620 with a 3 vessel cord. Mother and infant were stable after?delivery. Lacerations:? bilateral periurethrals repaired with 4-0 Vicryl Blood loss: 100 mL. Blood loss measurement type: QBL? Sponge and needles counts are correct. 1 Minute Interval Total Score: 7 5 Minute Interval Total Score: 8 Additional Details Shoulder Dystocia: No Placenta Delivery Time: 16:20 Placental Delivery Description: Spontaneous Delivery repair: Vicryl Procedure Done: Global Laceration: Periurethral - 1st Degree (blateral, both epaired) Blood Loss Measurement Type: QBL Bakri Used: No Sponge/Need Count Correct: Yes Cord Vessel Description: 3 Vessels Event Summary Status: Mother and infant were stable after delivery. Disposition: floor
[2022-05-24] MEDS: LACTATED RINGERS 1000 ML 1,000 ML 500 ML IV (19:00)
[2022-05-24] MEDS: OXYTOCIN 30 unit/500 ML in NS 30 UNIT/500 ML BAG 125 UNIT IVPB (19:00)
--- NOTE | 2022-05-24 19:32 | PM.OBPNVD1 ---
OB - PN:Subj Subjective Time Seen by Provider: 19:32 Date Seen: 05/24/22 Interval history: Robyn is a 26 y.o. who was admitted to L & D for labor. She had an uncomplicated NVD. Narrative: Called back to hospital. Robyn was moving to her PP room and declined a wheelchair. She had a large gush of blood that spread all over the hallway floor. She then was noted to feel dizzy and started to pass out. She was assisted to the floor by the RN, and did not fall or hit anything. Large clot also noted in the toilet when she was assisted to the bathroom after and emptied her bladder. She is now resting in bed, and denies feeling dizzy at this time. She has not eaten all day while she was in labor. OB - PN: Obj Exam Physical Exam: Vital signs: Temp Pulse BP Pulse Ox 98.8 F 92 131/58 L 100 05/24/22 17:00 05/24/22 18:34 05/24/22 18:34 05/24/22 12:59 Narrative: GENERAL APPEARANCE: normal affect, alert, no distress MOOD: appropriate HEENT: normocephalic, neck supple, full ROM CHEST: Symmetrical chest wall movement. Normal respiratory effort. ABDOMEN: soft, non-tender. Uterine fundus is firm, at Umbilicus, Midline and is appropriate for the stage of recovery. Lochia small at this time. OB - PN: Obj Data Labs Labs: Laboratory Results - last 24 hr 05/24/22 05/24/22 05/24/22 12:08 12:08 12:39 WBC 22.40 H RBC 4.03 Hgb 13.1 Hct 38.6 MCV 96 MCH 33 MCHC 34 RDW Coeff of Dany 13.6 Plt Count 328 Neut % (Auto) 82.0 H Lymph % (Auto) 10.9 L [place] % (Auto) 4.4 Eos % (Auto) 1.5 Baso % (Auto) 0.2 Neut # (Auto) 18.40 H Lymph # (Auto) 2.40 [place] # (Auto) 1.00 H Eos # (Auto) 0.30 Baso # (Auto) 0.00 SARS-CoV-2 (PCR) Negative SARS-CoV-2 Blood Type A Negative Antibody Screen NEGATIVE OB - PN: A/P Vaginal Delivery Assessment and Plan (1) : Status: Acute (2) Chronic ITP (idiopathic thrombocytopenia): Problem details: Spleen removal Status: Acute (3) Type A blood, Rh negative: Status: Acute (4) Uterine contractions: Status: Acute Plan Plan: routine care Comments: G 1 P 1 status post uncomplicated NVD Delayed PP hemorrhage - blood loss now totals almost 1000. BPs remain mildly elevated Aware to get up with assist until stable. Encouraged to empty bladder regularly Encouraged to eat and hydrate. IV fluid bolus of 500 ml started 2nd bag of pitocin up, to run over at least 3 hours Hgb ordered now and for in the AM RNs aware to monitor bleeding and fundas closely. If bleeding is increasing, order given to start TXA and give cytotec if needed. Will try to avoid Methergine r/t elevated BP at this time and Hemabate r/t hx of asthma. Continue to monitor blood pressures. Preeclampsia labs ordered.
[2022-05-24 21:26] LABS: Hematocrit 32.1 % (33.0-51.0); Hemoglobin* 10.9 gm/dL (12.0-16.0); Mean Corpuscular HGB Conc 34 gm/dL (32-36); Mean Corpuscular Hemoglobin 33 pg (26-34); Mean Corpuscular Volume 97 fL (80-100); Platelet Count* 273 K/uL (140-440)
[2022-05-24 21:32] LABS: White Blood Count* 28.27 K/uL (4.50-11.00)
[2022-05-24 21:33] LABS: Slide Review Reflex No
[2022-05-24 21:41] LABS: Alanine Aminotransferase* 22 U/L (4-35); Aspartate Amino Transferase* 32 U/L (12-35); Blood Urea Nitrogen* 8 mg/dL (5-24); Creatinine* 0.6 mg/dL (0.5-1.5); Est. Creatinine Clearance* 151.28; Estimated Glomerular Filt Rate 126 ml/min
[2022-05-24 21:42] LABS: INR 0.96 (0.91-1.10); Prothrombin Time 13.3 Seconds
[2022-05-24 21:43] LABS: Fibrinogen* 426 mg/dL (200-450)
[2022-05-24] MEDS: TRANEXAMIC ACID 100 MG/ML INJ 1000 MG IV (22:15)
[2022-05-24] MEDS: ACETAMINOPHEN 500 MG TABLET 1000 MG PO (23:38)
[2022-05-25 03:48] VITALS: BP 115/66; PULSE 109; RESP 20; TEMP 37.4; O2SAT 98
[2022-05-25 07:15] LABS: Hemoglobin* 9.4 gm/dL (12.0-16.0)
[2022-05-25 08:09] VITALS: BP 122/78; PULSE 80; RESP 18; TEMP 36.9; O2SAT 97
[2022-05-25] MEDS: DOCUSATE SODIUM 100 MG CAPSULE PO (08:14)
--- NOTE | 2022-05-25 08:51 | W.PM.VAGDEL1 ---
Procedure Laceration description: Periurethral - 1st Degree (blateral, both epaired) Estimated blood loss (mL): 1,036 Infant Infant Gender: Female total score - 1 minute: 7 total score - 5 minute: 8
--- NOTE | 2022-05-25 09:54 | P.OBPN_ITS ---
OB - PN:Subj Subjective Date Seen: 05/25/22 Interval history: Robyn is a 26 y.o. who was admitted to L & D for labor. She had an uncomplicated NVD. Patient comments OB post-: no complaints, pain well controlled, tolerating diet and flatus present status: and doing well feeding status: exclusively Narrative: Day 1:? Vaginal Delivery at 40 and 3/7 weeks.? ?? Complications:? She had a late hemorrhage. She was did pass out without falling when ambulating after the hemorrhage. She states that she has felt a little better every time she got up since this happened and now feels comfortable ambulating independently. She now denies fatigue, lightheadedness or dizziness. I will start her on a PO iron supplementation today. She did have a lot of constipation with iron supplementation during so is nervous that this could happen again. We discussed possibly taking the iron every other day or switching to a liquid iron after discharge. She will also work on increasing the iron rich foods in her diet.? The patient feels well.? The pain is well controlled with current medications.? She has no new complaints.? Urinary output is adequate and she is voiding without difficulty.? Has a good appetite, is tolerating a general diet, is passing flatus, and has not had a bowel movement.? Has small amount of rubra lochia.? She is ambulating well.? OB - PN: Obj Exam Physical Exam: Vital signs: Temp Pulse Resp BP Pulse Ox O2 Del Method 98.5 F 80 18 122/78 97 05/25/22 08:09 05/25/22 08:09 05/25/22 08:09 05/25/22 08:09 05/25/22 08:09 05/25/22 08:09 Narrative: GENERAL APPEARANCE:? normal affect, alert, no distress? MOOD:? appropriate? CHEST:? clear to auscultation and percussion? HEART:? regular rate and rhythm? ABDOMEN:? soft, non-tender the uterine fundus is U/2 and is appropriate for the stage of recovery.? PERINEUM:? mild edema of the perineum, there is bilateral periurethrals that are healing well.? EXTREMITIES:? normal and no edema? ? OB - PN: Obj Data Labs Labs: Laboratory Results - last 24 hr 05/24/22 05/24/22 05/24/22 12:08 12:08 12:39 WBC 22.40 H RBC 4.03 Hgb 13.1 Hct 38.6 MCV 96 MCH 33 MCHC 34 RDW Coeff of Dany 13.6 Plt Count 328 Neut % (Auto) 82.0 H Lymph % (Auto) 10.9 L [place] % (Auto) 4.4 Eos % (Auto) 1.5 Baso % (Auto) 0.2 Neut # (Auto) 18.40 H Lymph # (Auto) 2.40 [place] # (Auto) 1.00 H Eos # (Auto) 0.30 Baso # (Auto) 0.00 INR Fibrinogen BUN Creatinine Estimated Creat Clear Estimated GFR AST ALT SARS-CoV-2 (PCR) Negative SARS-CoV-2 Blood Type A Negative Antibody Screen NEGATIVE 05/24/22 05/24/22 05/24/22 21:20 21:20 21:20 WBC 28.27 H* RBC 3.30 L Hgb 10.9 L Hct 32.1 L MCV 97 MCH 33 MCHC 34 RDW Coeff of Dany Plt Count 273 Neut % (Auto) Lymph % (Auto) [place] % (Auto) Eos % (Auto) Baso % (Auto) Neut # (Auto) Lymph # (Auto) [place] # (Auto) Eos # (Auto) Baso # (Auto) INR 0.96 Fibrinogen 426 BUN 8 Creatinine 0.6 Estimated Creat Clear 151.28 Estimated GFR 126 AST 32 ALT 22 SARS-CoV-2 (PCR) Blood Type Antibody Screen 05/25/22 06:50 WBC RBC Hgb 9.4 L Hct MCV MCH MCHC RDW Coeff of Dany Plt Count Neut % (Auto) Lymph % (Auto) [place] % (Auto) Eos % (Auto) Baso % (Auto) Neut # (Auto) Lymph # (Auto) [place] # (Auto) Eos # (Auto) Baso # (Auto) INR Fibrinogen BUN Creatinine Estimated Creat Clear Estimated GFR AST ALT SARS-CoV-2 (PCR) Blood Type Antibody Screen OB - PN: A/P Vaginal Delivery Assessment and Plan (1) : Status: Acute (2) Chronic ITP (idiopathic thrombocytopenia): Problem details: Spleen removal Status: Acute (3) Type A blood, Rh negative: Status: Acute (4) Uterine contractions: Status: Acute Plan day: 1 Plan: routine care
[2022-05-25 12:03] VITALS: BP 120/70; PULSE 86; RESP 20; TEMP 36.6; O2SAT 98
[2022-05-25] MEDS: FERROUS SULFATE 325 MG TABLET PO (12:10)
[2022-05-25 16:41] VITALS: BP 133/79; PULSE 105; RESP 20; TEMP 36.6; O2SAT 97
[2022-05-26] VITALS: BP 117/71; PULSE 79; RESP 16; TEMP 36.9; O2SAT 95
[2022-05-26 07:50] VITALS: BP 121/76; PULSE 71; RESP 16; TEMP 36.8; O2SAT 97
--- NOTE | 2022-05-26 07:50 | PM.OBDSVD1 ---
DS: Providers Provider Time Seen by Provider: 07:50 Date Seen: 05/26/22 Date of admission: 05/24/22 16:08 Primary care physician: Carmen Galo CNM Admitting Clinician: Cathy Storm CNM Attending Physician on discharge: Cathy Storm CNM Date of Discharge: 05/26/22 DS: Diagnosis Discharge Diagnosis (1) NVD (normal vaginal delivery): Status: Acute (2) Lactating mother: Status: Acute (3) Chronic ITP (idiopathic thrombocytopenia): Status: Acute Problem details: Spleen removal (4) hemorrhage: Status: Acute Exam Narrative: Exam Narrative: VSS, afebrile GENERAL APPEARANCE: ?normal affect, alert, no distress MOOD: ?appropriate HEENT: normocephalic, neck supple, full ROM CHEST: ?Symmetrical chest wall movement. ?Normal respiratory effort. ?Clear to auscultation HEART: ?regular rate and rhythm ABDOMEN: ?soft, non-tender. Uterine fundus is firm, at Umbilicus, Midline and is appropriate for the stage of recovery. ?Bowel sounds present. PERINEUM: ?mild edema of the perineum, there is bilateral periurethral lacerations that are healing well. EXTREMITIES: ?normal and no edema Const: Vital Signs, click to edit/add: Vital Signs - 24 hr 05/25/22 08:09 05/25/22 12:03 05/25/22 16:41 Temperature 98.5 F 97.9 F 97.9 F Pulse Rate [Pulse Oximeter] 80 86 105 H Respiratory Rate 18 20 20 Blood Pressure [Le ft Arm] 122/78 120/70 133/79 Pulse Oximetry 97 98 97 Oxygen Delivery Me thod Room Air Room Air Room Air 05/26/22 00:00 Temperature 98.5 F Pulse Rate [Pulse Oximeter] 79 Respiratory Rate 16 Blood Pressure [Le ft Arm] 117/71 Pulse Oximetry 95 Oxygen Delivery Me thod Room Air Documenting provider has reviewed patient's vital signs: yes OB - DS: Summary Hospital Course Hospital Course: Robyn is a 26 y.o. G 1 P 1 who was admitted to L & D for active labor. ?She had an uncomplicated NVD. The patient feels well. ?The pain is well controlled with current medications. ?She has no new complaints. ?She is breast feeding and reports things are going well.? the patient has done well.? Vitals have been stable.? She has remained afebrile.? Has a good appetite, is tolerating a general diet. ?She is voiding without difficulty.? She is passing gas and has not had a bowel movement.? She is ambulating and denies any dizziness.? Has Small amount of rubra lochia. She is planning mini pill for prevention. Problems: She had a slightly delayed PP hemorrhage as she was transferring to her room. She did pass out at the time, but was assisted to the floor by the RN and did not fall. She had some elevated blood pressures in labor and immediately PP, but these have resolved. plan: Discharge home with baby. Follow up in 2 weeks and 6 weeks. , may follow up with if needed Acute anemia, continue iron supplementation for 6 weeks Peripartum Data delivery method: Vaginal Laceration description: Periurethral - 1st Degree [place] Infant Gender: Female Discharge Plan: Home Status at Discharge Functional status at discharge: independent ambulation Overall status at discharge: patient is progressing back to baseline Time Spent with Patient Time attestation: Total time spent providing and/or coordinating discharge services: Time spent: Less than 30 minutes Discharge Plan Discharge Disposition: Home, Self-Care Date of Admission: 05/24/22 16:08 Attending Provider on Discharge: Cathy Storm Primary Care Provider: Carmen Galo Condition: Stable Anticipated Discharge Date/Time: 05/26/22 10:56 Discharge Medications: New docusate sodium 100 mg Capsule 100 mg PO BID PRNQty: 100 0RF Rx Instructions: Take 1 cap 1-2 times a day as needed for constipation ibuprofen 600 mg Tablet 600 mg PO Q6H PRNQty: 60 0RF Continued magnesium 200 mg tablet 200 mg PO QDAY prenat.vits,jimbo,imy-hrkx-hegxd Tablet 1 tab PO QDAY ascorbate calcium (vitamin C) 500 mg tablet 500 mg PO QDAY Fish Oil 900-1,400 mg capsule,delayed release(DR/EC) 1 cap PO DAILY cholecalciferol (vitamin D3) 10 mcg (400 unit) capsule 10 mcg PO QDAY collagen 1 tab PO DAILY Discontinued aspirin 81 mg tablet,chewable 81 mg PO QDAY Discharge Orders: Discharge Order (Routine); Ordered 03/23/23 Ordered By: Cathy Storm Patient Education: OB Over the Counter Medication Information, OB Vaginal/Breast Feeding Additional Instructions: Follow up in 2 and 6 weeks. Continue iron supplement until 6 weeks post Activity Level: Activity as Tolerated Discharge Diet: Regular Follow Up Appointments: Carmen Galo CNM [Primary Care Provider] - Forms: [employer] Info Instructions
[2022-05-26] MEDS: DOCUSATE SODIUM 100 MG CAPSULE PO (07:58)
[2022-05-26] MEDS: FERROUS SULFATE 325 MG TABLET PO (07:58)
== END 2022-05-26 10:18 | disposition home or self-care (01) | DRG 560 ==
LOC: OB OUT 17:27 → OB 05-25 08:56
PROVIDERS: Admitting Provider Advanced Practice Midwife; PCP Advanced Practice Midwife; Visit Provider Advanced Practice Midwife
DX: O99.12 Other diseases of the blood and blood-forming organs and certain disorders involving the immune mechanism complicating childbirth (principal); D69.3 Immune thrombocytopenic purpura; O26.893 Other specified pregnancy related conditions, third trimester; Z67.11 Type A blood, Rh negative; O70.0 First degree perineal laceration during delivery; Z90.81 Acquired absence of spleen; O72.2 Delayed and secondary postpartum hemorrhage; R55 Syncope and collapse; O90.81 Anemia of the puerperium; D62 Acute posthemorrhagic anemia; Z37.0 Single live birth; Z3A.40 40 weeks gestation of pregnancy
CPT/HCPCS: 1967; 36415; 82565; 84450; 84460; 84520; 85018; 85025; 85027; 85384; 85610; 86850; 86900; 86901; 87635; 99213; A9270; J2370; J2405; J2795; J7120

== ENCOUNTER 2022-07-05 10:37 | Outpatient (CLI) | payer BC, SELFPAY | END 2022-07-05 10:38 | disposition home or self-care (01) | PROVIDERS: PCP Advanced Practice Midwife; Visit Provider Advanced Practice Midwife | DX: R82.90 Unspecified abnormal findings in urine (principal); Z39.2 Encounter for routine postpartum follow-up | CPT/HCPCS: 87086 ==